=== PATIENT | male | born 1945 | race Caucasian/White ===

== ENCOUNTER 2016-10-08 09:52 | Inpatient (IN) | payer OTHER ==
[2016-10-08] MEDS ORDERED: ONDANSETRON 4 MG/2 ML VIAL IVP ONE (11:01)
--- NOTE | 2016-10-08 11:04 | EDPHY ---
H & P Stated Complaint: chronic back pain/? fall saturday may have reinjured Source: Patient, Family Exam Limitations: No limitations - Personal History Current Tetanus/Diphtheria Vaccine: Yes Tetanus Vaccine Date: 2011 - Medical/Surgical History Hx Asthma: Yes Hx Chronic Respiratory Disease: Yes Hx Diabetes: Yes Hx Cardiac Disease: Yes Hx Renal Disease: No Hx Cirrhosis: No Hx Alcoholism: No Hx HIV/AIDS: No Hx Splenectomy or Spleen Trauma: No Other PMH: nose/vasectomy/ COPD/toe infection/chronic back probl/back surgery - Social History Smoking Status: Former smoker HPI/ROS: CHIEF COMPLAINT: Back pain HISTORY OF PRESENT ILLNESS: fell on Saturday evening injuring his low back. At that time he had minimal pain. He had no head injury or loss of consciousness. Describes no motor or sensory changes. However on Saturday he noticed increasing pain. Since that time his pain is increased from mild to moderate. It is worse with any palpation of lumbar region. It radiates down the right leg. Some paresthesia of the right leg. Worse with palpation or movement. Improved with rest. No incontinence of bowel or bladder. No retention of bowel or bladder. No anesthesia of the leg or motor changes. Does have a history of low back pain status post discopathy with uncertain surgeries in the past. He knows he has no hardware in there. No injuries elsewhere. He also has an ongoing foot infection that he has no complaints for but is asking to have his scheduled antibiotics administered through his existing PICC line. He has no complaints regarding the foot. No other associated complaints or modifying factors. REVIEW OF SYSTEMS: Ten systems reviewed and are negative unless otherwise noted in the HPI EXAMINATION General Appearance: Alert, no distress Head: normocephalic, atraumatic Eyes: Pupils equal and round, no conjunctival pallor or injection ENT, Mouth: Mucous membranes moist . Uvula midline. No lesions. Neck: Normal inspection, supple, non-tender Respiratory: mild rhonchi. No wheezing, crackles or consolidation. No distress or diminishment Cardiovascular: Regular rate and rhythm. Pulses intact distally with symmetric PT and radial pulses. Left DP not evaluated due to bandage Gastrointestinal: Abdomen is soft and nontender. Mild, reducible umbilical hernia. Nontender in all quadrants. Nonacute Back: moderate tenderness of the lumbar spine. No crepitus, step-off or deformity. Range of motion not fully tested secondary to pain Neurological: A&O, paresthesia of the right lower extremity. Strength is 5/5 in the right ankle, knee and hip. No focal deficits. Skin: Skin changes of bilateral lower extremities consistent with venous stasis. There is a wound on the left foot that I did not examine due to clean bandage. He has no complaints regarding this. Extremities: Nontender, Symmetric 1+ pedal edema Psychiatric: Mood and affect normal DIFFERENTIAL DIAGNOSES: Including but not limited to MDM: 11:00 a.m. fall with lower back pain, right-sided radiculopathy and mild hyper paresthesia. He has no weakness of the right lower extremity. No incontinence of bowel or bladder. No retention of bowel or bladder. No paralysis. Given his age, chronicity of back pain, in the presence of an fall with symptoms as above, have gone straight to MRI of the low back. Patient's bowels are comfortable with this plan. Additionally he has ongoing infection of the foot, the PICC line in place. I have given any verbal for him to receive his scheduled medications. We will give him pain medication to get the MRI. he is also comfortable with this plan. 12:52 p.m. notified by Radiology that there are significant findings on the MRI as listed in his report. The most acute L5 fracture with severe stenosis of the canal due to retropulsion. There are changes at L1, L3 as for as well as noted. We did review these. I did immediately paged Neurosurgery at 12:56 p.m.. We are waiting their call this time. 1:23 p.m. spoke with LESLI Osorio, with Neurosurgery. She was made aware of the significant findings on the MRI of the lumbar spine. She informed that she will have someone come see the patient here in the emergency department. 1:[address] Helm at bedside examining the patient at this time. 2:20 p.m. notified by Neurosurgery that they will admit the patient due to these findings. They are requesting medicine consult as the plan for surgery on Saturday. I discussed the case with the hospitalist, and Dr. Campbell will provide consultation. He is admitted in stable condition SUPERVISION: This patient was independently evaluated without the aide of supervising physician. (John Ring) Constitutional: Initial Vital Signs Temperature (C) 36.4 C 10/08/16 09:57 Heart Rate 86 10/08/16 09:57 Respiratory Rate 22 H 10/08/16 09:57 Blood Pressure 151/78 H 10/08/16 09:57 O2 Sat (%) 90 L 10/08/16 09:57 O2 Delivery Mode Nasal Cannula Allergies/Adverse Reactions: No Known Allergies Allergy (Verified 10/08/16 09:56) Home Medications: Medication Instructions Recorded Prednisone 10 mg PO DAILY 04/12/11 SIMVASTATIN [Zocor] 40 mg PO HS 04/12/11 Zafirlukast [Accolate 20 MG] 20 mg PO BID@1000,199904/12/11 metFORMIN HCL [Glucophage 500 mg 1,000 mg PO BID 04/12/11 (*)] Aspirin [Aspirin 81mg (*)] 81 mg PO HS 04/09/15 Cholecalciferol (Vitamin D3) 4,000 unit PO HS 04/09/15 [Vitamin D3] Fluticasone/Salmeter 500/50Mcg 1 puffs IH BID 04/09/15 [Advair 500/50 (*)] Albuterol [Proventil Inhaler HFA 1 - 2 puffs IH DAILY PRN 08/31/16 (*)] Allopurinol [Allopurinol 100 MG 100 mg PO DAILY 08/31/16 (*)] Ferrous Sulfate [Ferrous Sulf 325 325 mg PO DAILY 08/31/16 MG (*)] Furosemide [Lasix 40 MG (*)] 40 mg PO DAILY 08/31/16 Ipratropium/Albuterol [Duoneb (*)] 3 ml IH QID 08/31/16 Losartan Potassium [Cozaar 50 mg 50 mg PO HS 08/31/16 (*)] Pantoprazole Sodium [Protonix 40mg 40 mg PO DAILY 08/31/16 (*)] Potassium Cl [Klor-Con 20 meq (*)] 20 meq PO DAILY 08/31/16 guaiFENesin [Mucinex 600 MG (*)] 1,200 mg PO DAILY PRN 08/31/16 Acetaminophen [Tylenol 325mg (*)] 650 mg PO Q4HRS PRN #0 tab 09/02/16 Ertapenem [INVanz] 1 gm IV DAILY #0 vial 09/02/16 Hydrocodone/APAP 5/325 [[place] 1 tab PO Q4HRS PRN #20 tab 09/02/16 5/325 (*)] Vancomycin [Vancomycin (*)] 1.25 gm IV Q24H #0 vial 09/02/16 Medical Decision Making Other Provider: The patient was evaluated and managed by the Physician Coat Examiner/ Nurse Practitioner. I discussed the patient's presentation and course with the midlevel provider with them and agree with the evaluation. My co-signature indicates that I have reviewed this chart and I agree with the findings and plan of care as documented. I am the secondary supervising physician. (Kirsty Smith) - Data Points Medications Given: Discontinued Medications Morphine Sulfate (Morphine) 4 mg IVP EDNOW ONE Stop: 10/08/16 11:02 Last Admin: 10/08/16 11:34 Dose: 4 mg Ondansetron HCl (Zofran) 4 mg IVP EDNOW ONE Stop: 10/08/16 11:02 Last Admin: 10/08/16 11:35 Dose: 4 mg Departure - Departure Disposition: [facility] Inpatient Acute Clinical Impression: Closed compression fracture of L1 lumbar vertebral body, Compression fracture of L3 lumbar vertebra, Compression fracture of L4 lumbar vertebra Condition: Good
--- NOTE | 2016-10-08 13:18 | MR ---
MRI of the Lumbar Spine (Without Contrast) Clinical Indications: Evaluate multiple lumbar compression fractures. Radiculopathy post trauma. Technique: Sagittal and axial T1 and T2 MR sequences of the lumbar spine without contrast. Comparison examination: Lateral lumbar spine radiograph September 07, 2015. Findings: From prior examination, there is been significant interval change in appearance of the lum bar spine over one year. There has been interval development of severe compression fractures of L1 an d L4 with fractures through the centrum of both vertebral bodies. Retropulsion of bone at both levels contributes to moderate central stenosis at L1 and severe central stenosis at L4. A moderate tye marilin deformity of the superior endplate of L3 is also new from the prior examination, but subacute in age. There is an acute mild compression deformity of the superior endplate of L4. Moderate compressi on deformity of the T11 vertebral body appears remote in age. L1-L2: No disk herniation. Retropulsion of bone from L1 compression deformity contributes to moderate acquired central canal stenosis. L2-L3: No disk herniation or stenosis. L3-L4: Broad-based annular bulging. Retropulsion of bone from the severe L4 compression deformity cre ates severe acquired central canal stenosis. There is marked crowding of the cauda equina within the thecal space.. L4-L5: No disk herniation or stenosis. L5-S1: No disk herniation or stenosis. Impression: Significant interval progression and osteoporotic compression fractures from one year ea rlier. There has been interval development of severe compression deformity of L4 with associated edinson re acquired central canal stenosis. Severe compression fracture of L1 is associated with moderate acq uired central canal stenosis. Acute superior endplate fracture of L5 is present without retropulsion. Moderate remote compression fracture of the superior endplate of L3 and T11.. Results called to John Ring PA-C, at the time of the interpretation..
[2016-10-08] MEDS ORDERED: DIAZEPAM 10 MG/2 ML SYR IVP PRN (14:12)
[2016-10-08] MEDS ORDERED: POLYETHYLENE GLYCOL 3350 17 GM PKT PO PRN (14:12)
[2016-10-08] MEDS ORDERED: ONDANSETRON DISINTEGRATING 4 MG TAB PO PRN (14:12)
[2016-10-08] MEDS ORDERED: DIAZEPAM 5 MG TAB PO PRN (14:12)
[2016-10-08] MEDS ORDERED: LACTULOSE 20 GM/30 ML UDCUP PO PRN (14:12)
[2016-10-08] MEDS ORDERED: ONDANSETRON 4 MG/2 ML VIAL IVP PRN (14:12)
[2016-10-08] MEDS ORDERED: MAGNESIUM HYDROXIDE 30 ML UDCUP PO PRN (14:12)
[2016-10-08] MEDS ORDERED: diphenhydrAMINE 25 MG CAP PO PRN (14:12)
[2016-10-08] MEDS ORDERED: BISACODYL 10 MG SUPP PR PRN (14:12)
[2016-10-08] MEDS ORDERED: ACETAMINOPHEN 325 MG TAB PO PRN (14:12)
--- NOTE | 2016-10-08 17:21 | GHP ---
[f rep st] HISTORY AND PHYSICAL DATE OF ADMISSION: 10/08/2016 REASON FOR EVALUATION: Worsening low back pain with right lower extremity weakness and pain status post fall. HISTORY OF PRESENT ILLNESS: The patient is well known to me from prior lumbar surgery. He comes today because he states that on the evening of the 05 October 2016 he fell onto his back. He had minimal back pain at that time, but ongoing chronic low back pain as he has had for several months. No associated head injury or loss of consciousness, and no loss of bowel or bladder function or weakness or numbness and tingling of the lower extremities. He noticed increasing pain on the subsequent day that went from mild to moderate. He had extremely worse pain with palpation of the lumbar spine. The pain is radiating down the entire right leg in a nondermatomal distribution. Pain is worse with movement and palpation and improves with rest. No associated left lower extremity symptoms. He has never had symptoms like this in the past. He has been doing quite well and recently has been treated for a foot infection for which he has been getting treatment through his PICC line. REVIEW OF SYSTEMS: A 10-point review of systems on the patient intake form reviewed by myself, significant only for those noted above in the HPI. ALLERGIES: No known drug allergies. MEDICATIONS: 1. Prednisone 10 mg p.o. daily. 2. Zocor 40 mg p.o. q.h.s. 3. Zafirlukast 20 mg p.o. b.i.d. 4. Metformin 1000 mg p.o. b.i.d. 5. Aspirin 81 mg p.o. q.h.s. 6. Vitamin D 4000 units p.o. q.h.s. 7. Advair 500/50 one puff inhaled b.i.d. 8. Albuterol 1-2 puffs daily p.r.n. 9. Allopurinol 100 mg p.o. daily. 10. Ferrous sulfate 325 mg p.o. daily. 11. Lasix 40 mg p.o. daily. 12. Albuterol 3 mL inhaled q.i.d. 13. Cozaar 50 mg p.o. q.h.s. 14. Pantoprazole 40 mg p.o. daily. 15. Potassium chloride 20 mEq p.o. daily. 16. Guaifenesin 1200 mg p.o. daily p.r.n. 17. Tylenol 325 mg p.o. daily. 18. Invanz 1 g IV daily. 19. [place] 5/325 p.o. daily. 20. Vancomycin 1.25 g IV q.24 hours. FAMILY HISTORY: Negative for any cranial aneurysms or brain tumors. PAST MEDICAL HISTORY: Significant for asthma, chronic respiratory disease, diabetes, cardiac disease. PAST SURGICAL HISTORY: 1. History of prior decompression in the lumbar spine. 2. History of toe infection with recent surgery. 3. Vasectomy. SOCIAL HISTORY: The patient is and accompanied by his in the room today. Denies any tobacco use. PHYSICAL EXAMINATION: VITAL SIGNS: Temperature 97.5, heart rate 86, respiratory rate 22, blood pressure 151/78, satting at 90% and currently on 2 L nasal cannula oxygen. GENERAL: The patient is laying in bed in no acute distress. He is quite pleasant and cooperative with the examination. is at bedside. Mood and affect are appropriate. HEENT: Head is atraumatic, normocephalic. Pupils are equal, round, reactive to light bilaterally. Oropharynx is moist. CARDIOVASCULAR/PULMONARY: Deferred. NEUROLOGIC: Motor exam: He has 5/5 strength with bilateral supervisor hot strip mill strength, biceps, triceps, bilateral hip flexion, knee flexion, extension, and right-sided plantar dorsiflexion. Left ankle is not tested secondary to it being in a bandage from his prior surgery. Sensory exam is intact with sensation to light touch throughout all major dermatomes of bilateral upper and lower extremities throughout, with diminished sensation slightly in the bilateral stocking distribution. SKIN: He has a wound on the left which is currently covered by a bandage which was not removed. Other, he has no Pillai's. No Babinski. Other, gait and station are deferred. Neurologic cranial nerves 2-12 are otherwise intact. Face symmetric. Tongue protrudes in midline. Uvula and palate elevate symmetrically. Symmetric sensation on the face to light touch. Hearing is intact to light conversation. Shoulder shrug is symmetric. MEDICAL DECISION MAKING: Patient underwent an MRI scan of the lumbar spine without contrast completed on the September, reviewed by myself on the [facility] PACS system. There is significant interprogression osteoporotic compression deformity with severe compression deformity of L4 with associated severe acquired central canal stenosis. There is severe compression deformity of L1 with moderate acquired central canal stenosis. There is acute superior endplate fracture of L5 without retropulsion. There are remote compression deformities of the superior endplates of L3 and T11. ASSESSMENT AND PLAN: The patient is a 71-year-old gentleman with multiple medical comorbidities including utilization of prednisone for chronic obstructive pulmonary disease, who presents now with worsening low back pain with right lower extremity paresthesias and weakness. On clinical examination, he appears to have a normal clinical examination; though, he is having difficulty with ambulation secondary to both his back pain and right lower extremity pain. He has acute deformities of the L4 and superior endplate of L5 and questionable L1 endplates with severe acquired stenosis at the L4 level. At this point, the patient's pain is poorly controlled and he is not able to be ambulatory or be discharged home given his age and comorbidities as well as neurological findings. At this point, we will admit him to the hospital for likely surgical intervention. I discussed with him the risks, benefits, and treatment alternatives, including no intervention. Will have the medicine service consult on the patient and get him cleared for surgery. We have got him booked for surgery on the 11 of October for an L3-L5 lumbar laminectomy with kyphoplasty of both L4 and L5. We will hold his aspirin in the meantime and have the medical service ensure that he gets his antibiotics and gets him teed up from a medical standpoint for surgery. This was discussed with the patient's and patient in the ER today, and both are in agreement. /[id number]/MODL MTDD
--- NOTE | 2016-10-08 18:10 | DX ---
Portable Chest 17:08 History: Evaluate pneumonia for pleural effusion Comparison: March 07, 2016 Findings: There is new patchy right lung infiltrate. Bibasilar consolidation is chronic or recurrent and associated with increased blunting of the right costophrenic gutter that likely represents a smal l pleural effusion. A right arm PICC line is newly present with tip in the superior vena cava. Prior left mid lung consolidation has cleared. Impression: New right lung pneumonia with small right pleural effusion. Basilar consolidation consist ent with chronic scarring/atelectasis versus recurrent pneumonia.
[2016-10-08] MEDS ORDERED: D50W 25 GM/50 ML SYR IVP PRN (18:22)
[2016-10-08] MEDS ORDERED: guaiFENesin 600 MG TAB.ER PO PRN (18:23)
[2016-10-08] MEDS ORDERED: VANCOMYCIN 1.25 GM IV SCH (18:30)
[2016-10-08 20:02] LABS: HEMATOCRIT 27.4 % (40.0-51.0); MEAN CELL HEMOGLOBIN 31.4 pg (27.9-34.1); MEAN CELL HEMOGLOBIN CONCENTR. 32.8 g/dL (32.4-36.7); MEAN CELL VOLUME 95.5 fL (81.5-99.8); RED BLOOD CELL COUNT 2.87 10^6/uL (4.40-6.38)
--- NOTE | 2016-10-08 20:06 | GCON ---
[f rep st] CONSULTATION DATE OF CONSULTATION: 10/08/2016 REFERRING PHYSICIAN: Albert Helm MD REASON FOR CONSULTATION: Management of medical issues. HISTORY OF PRESENT ILLNESS: Patient is a 71-year-old male with history of prior lumbar spine decompr ession, prediabetes, COPD on chronic oxygen 4 L, presenting with increased back pain. States he fell out of a chair reaching for something on the floor on the evening of the and fell on his right side. He did not hit his head or have loss of consciousness. He denies overt weakness. No bowel or bladder incontinence. He had increased pain on the right side the subsequent day that was more mode rate. When asked to describe the pain, he could not tell me. This pain does radiate down the right leg and worse with movements. Minimal pain if he is lying still. He has been recently followed by Dr. Jamison with Infectious Disease for a diabetic foot ulcer, in [facility] he has had a PICC line and been receiving Invanz. Patient denies fevers, chills, or sweats. No c ough. No shortness of breath. No myalgias. No ill contacts. REVIEW OF SYSTEMS: I completed a 10-point review of systems, negative except noted in HPI. PAST MEDICAL HISTORY: 1. Left foot cellulitis, currently treated with Invanz. 2. COPD. 3. Chronic hypoxemic respiratory failure with 4 L all the time. 4. Prediabetes. 5. History of atrial fibrillation. 6. History of gout. PAST SURGICAL HISTORY: Decompression lumbar spine, nasoseptal surgery, soft palate surgery, 2 prior lumbar surgeries, vasectomy. SOCIAL HISTORY: Lives in [place] with his . He has 2 kids. He has smoked 2 packs a day for 40 years, has 2 alcoholic drinks every evening, and no illicits. FAMILY HISTORY: Brother with diabetes. ALLERGIES: No known drug allergies. MEDICATIONS ON ADMISSION: Metformin 1000 mg b.i.d., guaifenesin p.r.n., Accolate 20 mg p.o. b.i.d., vancomycin 1.25 g IV q.24, simvastatin 40 mg daily, prednisone 10 mg daily, potassium 20 mEq daily, P rotonix 40 mg daily, losartan 50 mg p.o. q.h.s., DuoNeb q.i.d., [place] 5/325 one tab p.o. q.4 hours p. r.n., Lasix 40 mg daily, Advair 1 puff b.i.d., iron 325 mg daily, ertapenem 1 g daily. aspirin 81 mg daily, allopurinol 100 mg daily, albuterol p.r.n., Tylenol p.r.n. PHYSICAL EXAMINATION: VITAL SIGNS: Temperature 36.6, blood pressure 143/79, heart rate 83, respirat ions 16, and 96% on 2 L. GENERAL: Patient is sitting up in bed, in no acute distress. HEENT: PERRL A, EOMI. Oropharynx is clear without exudate or ulceration. CV: Regular rate rhythm. No murmurs, gallops, or rubs. LUNGS: Diminished throughout. No crackles or wheezes. ABDOMEN: Soft, nontender , nondistended. Positive bowel sounds. : No suprapubic or CVA tenderness. No Pena in place. M USCULOSKELETAL: Right upper extremity PICC line without evidence of infection or erythema. Left low er extremity with erythema up to the murdock with warmth, not tender. Two ulcers, 1 on the medial aspec t of the big toe was packed, heel ulcer is healing well with no purulence. IMAGING: Chest x-ray, personally reviewed by me: Small right-sided pleural effusion, query right-si ded opacity, basilar consolidation consistent with chronic scarring. Lumbar spine MRI: Significant interval progression in osteoporotic compression fractures from 1 year earlier. There has been inter waqar development of severe compression deformity of L4 with associated severe acquired central canal s tenosis. Severe compression fracture of L1 is associated with moderate acquired central canal stenos is. Acute superior endplate fracture of L5. Moderate remote compression fracture in the superior en dplate of L3 and T11. ASSESSMENT AND PLAN: 1. Acute on chronic lumbar pain: Patient presented with progressive pain with right lower extremity paresthesia and weakness. He has acute deformities of L4 and superior endplate of L5. Neurosurgery plans for L3 through L5 lumbar laminectomy on October 11, as well as kyphoplasty at L4-L5. Pain m anagement per Neurosurgery. Will hold his aspirin. 2. History of atrial fibrillation: Patient is currently in normal sinus rhythm upon my exam. EKG i s pending. He is anticoagulated with a baby aspirin. This has been held with upcoming surgery. 3. Accelerated hypertension: Will resume losartan and Lasix, but would recommend holding these day of surgery to avoid perioperative hypotension. 4. Hyperlipidemia: Continue Zocor. 5. Left diabetic foot ulcer: Patient is followed by Isaak Jamison with Infectious Disease. He has be en receiving vancomycin and meropenem as an outpatient. Will continue these medications. 6. Gout: Continue allopurinol. Labs are pending. BMP and CBC are pending. 7. Controlled diabetes: Patient on metformin as an outpatient. Will hold this with upcoming proced ure and use sliding scale insulin. 8. Chronic obstructive pulmonary disease: No evidence of exacerbation. Will continue home medicati ons. Continue inhalers, as well as his prednisone. 9. Chronic hypoxemic respiratory failure: Patient normally wears 4 L of oxygen in which now he has only requiring 2. Chest x-ray showed a small pleural effusion and possible pneumonia however, patien t is asymptomatic without fever. Labs are pending. Do not think this is infectious at this point. 10. Diet: Diabetic. 11. Deep venous thrombosis prophylaxis: SCDs. Thank you for this consult. We will follow along. Please call with any questions. /[id number]/MODL
[2016-10-08 20:28] LABS: ANION GAP 10 mEq/L (8-16); CALCIUM 8.9 mg/dL (8.5-10.4); CARBON DIOXIDE 27 mEq/l (22-31); CHLORIDE 101 mEq/L (97-110); CREATININE 0.9 mg/dL (0.7-1.3); GLOMERULAR FILTRATION RATE > 60; GLUCOSE 114 mg/dL (70-100); POTASSIUM 4.2 mEq/L (3.5-5.2); SODIUM 138 mEq/L (134-144)
[2016-10-08] MEDS ORDERED: FAMOTIDINE 20 MG/NACL 50 ML IV SCH (21:00)
[2016-10-08] MEDS: ERTAPENEM 1 GM in NS 100 ML IV SCH (21:55)
[2016-10-08] MEDS ORDERED: VANCOMYCIN 1.25 GM in D5W 250 ML IV SCH (22:00)
[2016-10-08] MEDS: CHOLECALCIFEROL VIT D3 2,000 UNITS TAB/CAP PO SCH (22:07)
[2016-10-08] MEDS: LOSARTAN POTASSIUM 50 MG TAB PO SCH (22:08)
[2016-10-08] MEDS: ATORVASTATIN CALCIUM 20 MG TAB PO SCH (22:08)
[2016-10-08] MEDS: IPRATROPIUM/ALBUTEROL 3 ML DEYVIAL IH SCH (22:13)
[2016-10-08] MEDS: FLUTICASONE/SALMETER 500/50MCG DISKUS IH SCH (22:17)
[2016-10-08] MEDS: SENNOSIDES/DOCUSATE SODIUM TAB PO SCH (22:42)
[2016-10-08] MEDS: ZAFIRLUKAST 20 MG PO SCH (22:43)
[2016-10-09 05:31] LABS: HEMATOCRIT 25.7 % (40.0-51.0); HEMOGLOBIN 8.6 g/dL (13.7-17.5); MEAN CELL HEMOGLOBIN 32.3 pg (27.9-34.1); MEAN CELL HEMOGLOBIN CONCENTR. 33.5 g/dL (32.4-36.7); MEAN CELL VOLUME 96.6 fL (81.5-99.8); RED BLOOD CELL COUNT 2.66 10^6/uL (4.40-6.38); RED CELL DISTRIBUTION WIDTH 14.6 % (11.5-15.2)
[2016-10-09 05:43] LABS: INR 1.13 (0.83-1.16); PROTIME(PATIENT) 14.4 SEC (12.0-15.0)
[2016-10-09 05:44] LABS: APTT 30.1 SEC (23.0-38.0)
[2016-10-09 05:47] LABS: ANION GAP 6 mEq/L (8-16); CALCIUM 8.9 mg/dL (8.5-10.4); CARBON DIOXIDE 29 mEq/l (22-31); CHLORIDE 103 mEq/L (97-110); CREATININE 0.9 mg/dL (0.7-1.3); GLOMERULAR FILTRATION RATE > 60; GLUCOSE 72 mg/dL (70-100); POTASSIUM 4.4 mEq/L (3.5-5.2); SODIUM 138 mEq/L (134-144)
[2016-10-09] MEDS: IPRATROPIUM/ALBUTEROL 3 ML DEYVIAL IH SCH ×4 (06:06→21:54)
--- NOTE | 2016-10-09 08:34 | HOSPPROG ---
Hospitalist Progress Note Assessment/Plan: #Lumbar back pain -controlled on current regimen -bowel regimen -plan for surgery #Prediabetes -hold metformin. SSI #Benign HTN -cont home meds -Hold ACEI and LAsix day of surgery #Gout -allopurinol #Diabetic foot infection -was accidentally dosed Envanz/Vanc 2 x yesterday. He received doses at home by his . Med rec reflected that he had last dose on Saturday. -Random level today 22. Hold tonight's dose. Trough in morning. Kidney function normal. Redose in morning -cont Envanz #Chronic hypoxemic resp failure -due to COPD. No e/e exacerbation -questionable PNA on CXR, but he does not endorse any symptoms, thus no abx #Atrial fibrillation -EKG with NSR, 1st degree block. No concerning arrhythmia. Restart ASA after surgery when ok by NSGY #Diet: DM #DVT ppx: SCDs #Disp: cont IV abx. Subjective: pain controlled currently. Denies fever, cough, SOB Objective: Vital Signs Temp Pulse Resp BP Pulse Ox 36.7 C 82 16 110/64 90 L 10/09/16 07:24 10/09/16 07:24 10/09/16 07:24 10/09/16 07:24 10/09/16 07:24 Laboratory Results 10/09/16 04:50 10/09/16 04:50 10/08/16 10/09/16 10/10/16 05:59 05:59 05:59 Intake Total 1200 Output Total 1050 Balance 150 PT 14.4 SEC (12.0-15.0) 10/09/16 04:50 INR 1.13 (0.83-1.16) 10/09/16 04:50 - Physical Exam Constitutional: no apparent distress Eyes: PERRL Ears, Nose, Mouth, Throat: moist mucous membranes, hearing normal Cardiovascular: regular rate and rhythym, no murmur, rub, or gallop Respiratory: no respiratory distress, reduced air movement Gastrointestinal: normoactive bowel sounds, soft, non-tender abdomen Skin: warm Musculoskeletal: other (left foot ulcers wrapped. Mild erythema over murdock) Neurologic: AAOx3 ICD10 Worksheet Patient Problems: Problems Problem Status Diagnosed Closed compression fracture of L1 lumbar vertebral body Acute Compression fracture of L3 lumbar vertebra Acute Compression fracture of L4 lumbar vertebra Acute Cellulitis of left foot Acute MRSA (methicillin resistant Staphylococcus aureus) Acute 09/14/16
[2016-10-09] MEDS: ALLOPURINOL 100 MG TAB PO SCH (08:53)
[2016-10-09] MEDS: FERROUS SULFATE 325 MG TAB PO SCH (08:53)
[2016-10-09] MEDS: PANTOPRAZOLE SODIUM 40 MG TAB PO SCH (08:54)
[2016-10-09] MEDS: predniSONE 10 MG TAB PO SCH (08:54)
[2016-10-09] MEDS: FAMOTIDINE 20 MG TAB PO SCH ×2 (08:54→19:40)
[2016-10-09] MEDS: INSULIN LISPRO 100 UNIT/ML SC SCH ×3 (08:55→16:19)
[2016-10-09] MEDS: FUROSEMIDE 40 MG TAB PO SCH (08:56)
[2016-10-09] MEDS: ZAFIRLUKAST 20 MG PO SCH (08:56)
[2016-10-09] MEDS: FLUTICASONE/SALMETER 500/50MCG DISKUS IH SCH ×2 (08:56→21:55)
[2016-10-09] MEDS: SENNOSIDES/DOCUSATE SODIUM TAB PO SCH ×2 (08:56→22:42)
[2016-10-09] MEDS ORDERED: ERTAPENEM 1 GM VIAL IV SCH (09:00)
--- NOTE | 2016-10-09 09:32 | CPEKG ---
Heart Rate: 69 RR Interval: 870 P-R Interval: 248 QRSD Interval: 90 QT Interval: 416 QTC Interval: 446 P [place]: 3 QRS [place]: 14 T Wave [place]: 46 EKG Severity - ABNORMAL ECG - EKG Impression: SINUS RHYTHM EKG Impression: FIRST DEGREE AV BLOCK EKG Impression: LOW VOLTAGE THROUGHOUT Electronically Signed By: Ghanshyam Mcmahon 10-Oct-2016 08:06:16
--- NOTE | 2016-10-09 09:57 | NEUSURGPN ---
Assessment/Plan: 71 y/o male with lumbar stenosis and lumbar compression fractures (L4 and L5) -Discussed the risks, benefits and alternatives to an L3-L5 laminectomy with L4 and L5 kyphoplasty. Consents signs and placed on chart. Questions answered. - Appreciate medicine clearance for surgery for -Optimize pain management -Discussed with Dr. Helm -Please notify NS with any change in neuro/motor exam Subjective: low back pain Objective: NAD A&Ox3 MAEx4 5/ and equal in BUE and BLE. - Physician Discussed Patient with : Volodym[facility] Neurosurgery Physical Exam - Vitals, I&O, Labs I and O 10/08/16 10/09/16 10/10/16 05:59 05:59 05:59 Intake Total 1200 Output Total 1050 Balance 150 Weight 77.111 kg Intake: Oral (ml) 800 IV Infused (ml) 400 Famotidine 20 mg/NaCl 50 50 ml @ 200 mls/hr IV Q12HRS [facility] Rx#:[id number] Ertapenem 1 gm In Ns 100 100 ml @ 200 mls/hr IV DAILY21 [facility] Rx#: [id number] Vancomycin 1.25 gm In D5w 250 250 ml @ 166.667 mls/hr IV Q24H [facility] Rx#: [id number] Output: Urine (ml) 1050 Urinal 450 Other: Number of Stools Incontinence 1 Vital Signs Temp Pulse Resp BP Pulse Ox 36.7 C 82 16 110/64 90 L 10/09/16 07:24 10/09/16 07:24 10/09/16 07:24 10/09/16 07:24 10/09/16 07:24 Laboratory Results 10/09/16 04:50 10/09/16 04:50 ICD10 Worksheet Patient Problems: Problems Problem Status Diagnosed Closed compression fracture of L1 lumbar vertebral body Acute Compression fracture of L3 lumbar vertebra Acute Compression fracture of L4 lumbar vertebra Acute Cellulitis of left foot Acute MRSA (methicillin resistant Staphylococcus aureus) Acute 09/14/16
[2016-10-09] MEDS: OXYCODONE/APAP 5/325 TAB PO PRN (11:32)
[2016-10-09] MEDS: MONTELUKAST SODIUM 10 MG TAB PO SCH (17:37)
[2016-10-09] MEDS: LOSARTAN POTASSIUM 50 MG TAB PO SCH (19:40)
[2016-10-09] MEDS: CHOLECALCIFEROL VIT D3 2,000 UNITS TAB/CAP PO SCH (19:40)
[2016-10-09] MEDS: ATORVASTATIN CALCIUM 20 MG TAB PO SCH (19:40)
[2016-10-09] MEDS: ERTAPENEM 1 GM in NS 100 ML IV SCH (22:16)
[2016-10-10 05:11] LABS: HEMATOCRIT 26.3 % (40.0-51.0); HEMOGLOBIN 8.7 g/dL (13.7-17.5); MEAN CELL HEMOGLOBIN 31.8 pg (27.9-34.1); MEAN CELL HEMOGLOBIN CONCENTR. 33.1 g/dL (32.4-36.7); RED BLOOD CELL COUNT 2.74 10^6/uL (4.40-6.38); RED CELL DISTRIBUTION WIDTH 14.8 % (11.5-15.2)
[2016-10-10 05:16] LABS: ANION GAP 5 mEq/L (8-16); CALCIUM 8.8 mg/dL (8.5-10.4); CARBON DIOXIDE 27 mEq/l (22-31); CHLORIDE 105 mEq/L (97-110); CREATININE 0.9 mg/dL (0.7-1.3); GLOMERULAR FILTRATION RATE > 60; GLUCOSE 84 mg/dL (70-100); POTASSIUM 4.5 mEq/L (3.5-5.2); SODIUM 137 mEq/L (134-144)
[2016-10-10] MEDS: IPRATROPIUM/ALBUTEROL 3 ML DEYVIAL IH SCH ×4 (06:24→21:22)
[2016-10-10] MEDS: INSULIN LISPRO 100 UNIT/ML SC SCH ×3 (08:30→18:27)
[2016-10-10] MEDS ORDERED: VANCOMYCIN 1 GM in NS 250 ML IV SCH (09:00)
[2016-10-10] MEDS: ALLOPURINOL 100 MG TAB PO SCH (09:13)
[2016-10-10] MEDS: HYDROCODONE/APAP 5/325 TAB PO PRN (09:13)
[2016-10-10] MEDS: predniSONE 10 MG TAB PO SCH (09:13)
[2016-10-10] MEDS: SENNOSIDES/DOCUSATE SODIUM TAB PO SCH ×2 (09:13→23:33)
[2016-10-10] MEDS: FERROUS SULFATE 325 MG TAB PO SCH (09:13)
[2016-10-10] MEDS: PANTOPRAZOLE SODIUM 40 MG TAB PO SCH (09:14)
[2016-10-10] MEDS: FAMOTIDINE 20 MG TAB PO SCH ×2 (09:14→20:31)
--- NOTE | 2016-10-10 09:29 | NEUSURGPN ---
Assessment/Plan: 71 y/o male with lumbar stenosis at L1 and L4 and lumbar compression fractures ( L4 and L5). Right leg pain. -Scheduled on for L3-L5 laminectomy with L4 and L5 kyphoplasty. Consents signed for L3-5 laminectomy and L4 and L5 kyphoplasty. - Appreciate medicine clearance for surgery for -Optimize pain management -Please notify NS with any change in neuro/motor exam Subjective: low back pain Objective: NAD A&Ox3 MAEx4 5/5 and equal in BUE and BLE.Subjective weakness in right leg. Sens +LT in bilat LE Left foot wrapped in gauze Urinary Catheter in Place: No Neurosurgery Physical Exam - Vitals, I&O, Labs I and O 10/09/16 10/10/16 10/11/16 05:59 05:59 05:59 Intake Total 1200 1275 500 Output Total 1050 1400 Balance 150 -125 500 Weight 77.111 kg Intake: Oral (ml) 800 1175 500 IV Infused (ml) 400 100 Famotidine 20 mg/NaCl 50 50 ml @ 200 mls/hr IV Q12HRS [facility] Rx#:[id number] Ertapenem 1 gm In Ns 100 100 100 ml @ 200 mls/hr IV DAILY21 [facility] Rx#: [id number] Vancomycin 1.25 gm In D5w 250 250 ml @ 166.667 mls/hr IV Q24H [facility] Rx#: [id number] Output: Urine (ml) 1050 1400 Incontinence 300 Urinal 450 1100 Other: Number of Voids Incontinence 1 Urinal 1 Number of Stools Incontinence 1 1 Urinal 1 Vital Signs Temp Pulse Resp BP Pulse Ox 36.4 C 62 16 129/63 H 98 10/10/16 08:00 10/10/16 08:00 10/10/16 08:00 10/10/16 08:00 10/10/16 08:00 Laboratory Results 10/10/16 04:30 10/10/16 04:30 ICD10 Worksheet Patient Problems: Problems Problem Status Diagnosed Closed compression fracture of L1 lumbar vertebral body Acute Compression fracture of L3 lumbar vertebra Acute Compression fracture of L4 lumbar vertebra Acute Cellulitis of left foot Acute MRSA (methicillin resistant Staphylococcus aureus) Acute 09/14/16
[2016-10-10] MEDS: VANCOMYCIN HCL/NORMAL SALINE 250 ML IV SCH (10:02)
[2016-10-10] MEDS: FLUTICASONE/SALMETER 500/50MCG DISKUS IH SCH ×2 (10:07→21:23)
[2016-10-10] MEDS: FUROSEMIDE 40 MG TAB PO SCH (12:58)
--- NOTE | 2016-10-10 14:56 | WOCRNPDOC ---
[facility] Advanced Assessment Note - Skin Integrity Problem, Advanced Assess Left First Metatarsal Head Surgical Wound/Incision Dressing Type: Gauze (packing and covering) Dressing Description: Intact, Shadowed Exudate Amount: Scant Exudate Color: Reddish/Yellow Exudate Characteristic(s): Serosanguinous Integumentary Issue Intervention: Dressing Changed Deanna Wound Tissue: Intact Deanna Wound Swelling: None Wound Bed Color: Red Wound Bed Constitution: Granulation Tissue Wound Edges: Well Defined Site Odor: None Site Measurement - Head-to-Toe Length X Width X Depth (cm): 2.1cmx1.6cmx0.8cm Skin Integrity Problem Comment: Surgical wound w/ gauze packing noted to 1st metatarsal head. Surgery was performed on 09/14 outpatient, and patient is currently hospitalized for an unrelated reason. Packing removed, wound has copious granulation tissue throughout. There is no erythema deanna-wound, and no associated swelling. Wound packed w/ Algidex Ag 1/4 inch gauze, and covered w/ Allevyn Life dressing. Report given to package winder Nancy. Left Heel Pressure Injury Dressing Type: Allevyn Life Dressing Description: Clean/Dry, Intact Exudate Amount: Scant Exudate Color: Reddish/Yellow Exudate Characteristic(s): Serosanguinous Integumentary Issue Intervention: Visualized Under Dressing Deanna Wound Tissue: Blanching, Intact Deanna Wound Swelling: Mild Wound Bed Color: Red Wound Bed Constitution: Smooth Tissue Wound Edges: Epithelizing Site Odor: None Site Measurement - Head-to-Toe Length X Width X Depth (cm): 1.6cmx0.3cmx0.1cm Pressure Injury Present on Admit: Yes (healing pressure injury; patient developed this in rehab facility.) Skin Integrity Problem Comment: Healing pressure injury noted on L heel, linear in appearance and epthihelializing throughout. No erythema or associated swelling deanna-wound. Per outpatient tx, will order application of Anne Promogran collagen to be applied while he is here. Report given to package winder Nancy.
--- NOTE | 2016-10-10 16:22 | HOSPPROG ---
Hospitalist Progress Note Assessment/Plan: #Lumbar back pain -controlled on current regimen -bowel regimen -plan for surgery tomorrow #Prediabetes -hold metformin. SSI #Benign HTN -cont home meds -pt declining his Lasix. Hold PURNIMA-I day of surgery #Gout -allopurinol #Diabetic foot infection -was accidentally dosed Envanz/Vanc 2 x 10/08. He received doses at home by his . -Trough today 14, so redose vanc and cont Invanz. Wound care following #Chronic hypoxemic resp failure -due to COPD. No e/e exacerbation -questionable PNA on CXR, but he does not endorse any symptoms, thus no abx #Atrial fibrillation -EKG with NSR, 1st degree block. No concerning arrhythmia. Restart ASA after surgery when ok by NSGY #Diet: DM, NPO for surgery #DVT ppx: SCDs #Disp: cont IV abx. Subjective: refused PT due to pain Objective: Vital Signs Temp Pulse Resp BP Pulse Ox 36.4 C 60 16 132/72 H 93 10/10/16 12:00 10/10/16 12:00 10/10/16 12:00 10/10/16 12:00 10/10/16 12:00 Laboratory Results 10/10/16 04:30 10/10/16 04:30 10/09/16 10/10/16 10/11/16 05:59 05:59 05:59 Intake Total 1200 1275 500 Output Total 1050 1400 Balance 150 -125 500 PT 14.4 SEC (12.0-15.0) 10/09/16 04:50 INR 1.13 (0.83-1.16) 10/09/16 04:50 - Physical Exam Constitutional: no apparent distress, other (sitting up in chair) Eyes: PERRL Ears, Nose, Mouth, Throat: moist mucous membranes Cardiovascular: regular rate and rhythym, no murmur, rub, or gallop Respiratory: no respiratory distress, no rales or rhonchi Gastrointestinal: normoactive bowel sounds, soft, non-tender abdomen Genitourinary: no bladder fullness Skin: warm Musculoskeletal: other (right-sided lumbar TTP, weakness in right leg) Neurologic: AAOx3 Psychiatric: interacting appropriately ICD10 Worksheet Patient Problems: Problems Problem Status Diagnosed Closed compression fracture of L1 lumbar vertebral body Acute Compression fracture of L3 lumbar vertebra Acute Compression fracture of L4 lumbar vertebra Acute Cellulitis of left foot Acute MRSA (methicillin resistant Staphylococcus aureus) Acute 09/14/16
[2016-10-10] MEDS: MONTELUKAST SODIUM 10 MG TAB PO SCH (20:30)
[2016-10-10] MEDS: ATORVASTATIN CALCIUM 20 MG TAB PO SCH (20:31)
[2016-10-10] MEDS: CHOLECALCIFEROL VIT D3 2,000 UNITS TAB/CAP PO SCH (20:31)
[2016-10-10] MEDS: LOSARTAN POTASSIUM 50 MG TAB PO SCH (20:31)
[2016-10-10] MEDS: ERTAPENEM 1 GM in NS 100 ML IV SCH (20:32)
[2016-10-10] MEDS: NS 1,000 ML IV SCH (22:04)
[2016-10-11] MEDS ORDERED: NS W/ 20 KCl/L 1,000 ML IV SCH (00:01)
[2016-10-11] MEDS: IPRATROPIUM/ALBUTEROL 3 ML DEYVIAL IH SCH ×4 (05:44→21:38)
[2016-10-11 06:12] LABS: ANION GAP 7 mEq/L (8-16); CALCIUM 8.6 mg/dL (8.5-10.4); CARBON DIOXIDE 26 mEq/l (22-31); CHLORIDE 107 mEq/L (97-110); CREATININE 0.9 mg/dL (0.7-1.3); GLOMERULAR FILTRATION RATE > 60; GLUCOSE 86 mg/dL (70-100); POTASSIUM 4.4 mEq/L (3.5-5.2); SODIUM 140 mEq/L (134-144)
[2016-10-11] MEDS: NS 1,000 ML IV SCH ×2 (08:42→20:19)
[2016-10-11] MEDS: VANCOMYCIN HCL/NORMAL SALINE 250 ML IV SCH ×2 (08:42→08:44)
[2016-10-11] MEDS: ALLOPURINOL 100 MG TAB PO SCH (08:44)
[2016-10-11] MEDS: FERROUS SULFATE 325 MG TAB PO SCH (08:45)
[2016-10-11] MEDS: FAMOTIDINE 20 MG TAB PO SCH ×2 (08:48→20:18)
[2016-10-11] MEDS: PANTOPRAZOLE SODIUM 40 MG TAB PO SCH (08:49)
[2016-10-11] MEDS: SENNOSIDES/DOCUSATE SODIUM TAB PO SCH ×2 (08:49→21:58)
[2016-10-11] MEDS: INSULIN LISPRO 100 UNIT/ML SC SCH ×3 (08:49→20:30)
[2016-10-11] MEDS: FUROSEMIDE 40 MG TAB PO SCH (08:49)
[2016-10-11] MEDS: predniSONE 10 MG TAB PO SCH (08:49)
--- NOTE | 2016-10-11 09:09 | NEUSURGPN ---
Assessment/Plan: 71 y/o male with lumbar stenosis at L1 and L4 and lumbar compression fractures ( L4 and L5). Right leg pain. -Scheduled for L3-L5 laminectomy with L4 and L5 kyphoplasty today. -Consents signed in chartfor L3-5 laminectomy and L4 and L5 kyphoplasty. -NPO -Marked - Appreciate medicine clearance for surgery -Optimize pain management -Please notify NS with any change in neuro/motor exam D/w Dr Helm Subjective: Pt resting in bed, wishes to proceed with surgery. Objective: AAOx3 NAD VSS MAEx4 Motor 5/5 BLE L foot in padding/float +LT Urinary Catheter in Place: No - Physician Discussed Patient with : Volodymyr Neurosurgery Physical Exam - Vitals, I&O, Labs I and O 10/10/16 10/11/16 10/12/16 05:59 05:59 05:59 Intake Total 1275 2065 Output Total 1400 500 Balance -125 1565 Intake: Oral (ml) 1175 1150 IV Infused (ml) 100 915 Ertapenem 1 gm In Ns 100 100 100 ml @ 200 mls/hr IV DAILY21 [facility] Rx#: [id number] Vancomycin 1 gm In Ns 250 815 ml @ 250 mls/hr IV Q24H [facility] Rx#:[id number] Output: Urine (ml) 1400 500 Incontinence 300 Urinal 1100 500 Other: Number of Voids Incontinence 1 Urinal 1 3 Number of Stools Incontinence 1 Urinal 1 Vital Signs Temp Pulse Resp BP Pulse Ox 36.6 C 66 15 133/76 H 96 10/11/16 07:35 10/11/16 07:35 10/11/16 07:35 10/11/16 07:35 10/11/16 07:35 Laboratory Results 10/10/16 04:30 10/11/16 05:20 ICD10 Worksheet Patient Problems: Problems Problem Status Diagnosed Closed compression fracture of L1 lumbar vertebral body Acute Compression fracture of L3 lumbar vertebra Acute Compression fracture of L4 lumbar vertebra Acute Cellulitis of left foot Acute MRSA (methicillin resistant Staphylococcus aureus) Acute 09/14/16
[2016-10-11] MEDS: FLUTICASONE/SALMETER 500/50MCG DISKUS IH SCH ×2 (10:59→21:38)
[2016-10-11] MEDS ORDERED: ceFAZolin 2 GM/DEXTROSE 100 ML IV ONE (13:00)
[2016-10-11] MEDS ORDERED: ceFAZolin 2 GM in D5W 100 ML IV ONE (13:00)
--- NOTE | 2016-10-11 13:31 | HOSPPROG ---
Hospitalist Progress Note Assessment/Plan: Patient is a 71-year-old male presented to the emergency room with worsening low back pain with right lower extremity weakness. Today is my 1st encounter with the patient. Chart reviewed. Discussed his care with Dr. Jamison. #. Lumbar back pain after sustaining a fall * To get a L3-L4 laminectomy today #. chronic hypoxemic respiratory failure * at his baseline on 4 L * chest x-ray shows some concern for possible pneumonia. Patient is not febrile and does not have any signs or symptoms of pneumonia. #. anemia * hemoglobin hematocrit are lower than his baseline * will follow #. chronic COPD / no exacerbation * on chronic steroids / low-dose prednisone * was given 100 mg of hydrocortisone before induction of anesthesia * will give him 2 more doses every 8 hours and then he can resume his oral prednisone #. Prediabetes * hold metformin. SSI * had some hypoglycemia earlier today which required an amp of D50 #. gait instability * will have PT and OT see him after surgery #. left diabetic foot ulcer * on vancomycin and ertapenem * wound Care following / will have dressing changes every other day #. HTN * cont home meds * stable #. Gout * allopurinol #Atrial fibrillation/ history of this * during my evaluation he is in sinus rhythm * Restart ASA after surgery when ok by NSGY #Diet: DM, NPO for surgery #DVT ppx: SCDs/ will need Lovenox when okay with surgical team Subjective: patient is complaining of some back pain Objective: Vital Signs Temp Pulse Resp BP Pulse Ox 36.9 C 74 16 146/67 H 95 10/11/16 11:24 10/11/16 11:24 10/11/16 11:24 10/11/16 11:24 10/11/16 11:24 Laboratory Results 10/10/16 04:30 10/11/16 05:20 10/10/16 10/11/16 10/12/16 05:59 05:59 05:59 Intake Total 1275 2065 250 Output Total 1400 500 Balance -125 1565 250 PT 14.4 SEC (12.0-15.0) 10/09/16 04:50 INR 1.13 (0.83-1.16) 10/09/16 04:50 - Physical Exam Constitutional: chronically ill appearing, uncomfortable Eyes: PERRL Ears, Nose, Mouth, Throat: hard of hearing Cardiovascular: regular rate and rhythym Respiratory: no respiratory distress, reduced air movement ( very diminished bibasilar) Gastrointestinal: normoactive bowel sounds Skin: warm, other ( do not evaluated his lower extremities. He was leaving for surgery) Neurologic: AAOx3 Psychiatric: interacting appropriately, not anxious ICD10 Worksheet Patient Problems: Problems Problem Status Diagnosed Closed compression fracture of L1 lumbar vertebral body Acute Compression fracture of L3 lumbar vertebra Acute Compression fracture of L4 lumbar vertebra Acute Cellulitis of left foot Acute MRSA (methicillin resistant Staphylococcus aureus) Acute 09/14/16
[2016-10-11] MEDS ORDERED: ALBUTEROL 60 PUFFS/8 GM MDI IH PRN (13:59)
[2016-10-11] MEDS ORDERED: LIDOCAINE 2% 100 MG/5 ML SYR IVP ONE (14:04)
[2016-10-11] MEDS ORDERED: DEXAMETHASONE 4 MG/ML VIAL ONE (14:04)
[2016-10-11] MEDS ORDERED: ROCURONIUM 50 MG/5 ML VIAL ONE (14:04)
[2016-10-11] MEDS ORDERED: ONDANSETRON 4 MG/2 ML VIAL ONE (14:04)
[2016-10-11] MEDS ORDERED: fentaNYL 100 MCG/2 ML INJ ONE ×2 (14:05→18:52)
[2016-10-11] MEDS ORDERED: HYDROmorphONE/DILAUDID 2 MG/ML SYR ONE (14:05)
[2016-10-11] MEDS ORDERED: PROPOFOL/EMULSION 500 MG/50 ML BOTTLE IV ONE (14:05)
[2016-10-11] MEDS ORDERED: PROPOFOL 200 MG/20 ML VIAL ONE (14:05)
[2016-10-11] MEDS ORDERED: CEFAZOLIN 2 GM/DEXTROSE/100 ML BAG IV ONE (14:37)
[2016-10-11] MEDS ORDERED: BUPIVACAINE/EPI 0.25% 30 ML SDV ONE (14:41)
[2016-10-11] MEDS ORDERED: BACITRACIN 50,000 UNITS/10 ML SYR IRR ONE (14:41)
[2016-10-11] MEDS ORDERED: AVITENE POWDER 1 GM JAR TP ONE (14:42)
[2016-10-11] MEDS ORDERED: IOPAMIDOL (ISOVUE-M 300) 15 ML VIAL IV ONE (14:42)
[2016-10-11] MEDS ORDERED: SKIN ADHESIVE (DERMABOND) 1 EACH TP ONE ×2 (14:42→17:53)
[2016-10-11] MEDS ORDERED: MIDAZOLAM 2 MG/2 ML VIAL ONE (15:17)
[2016-10-11] MEDS ORDERED: HYDROCORTISONE 100 MG/2 ML VIAL ONE (15:58)
--- NOTE | 2016-10-11 17:19 | PCMIDPN ---
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 Patient is on both vancomycin and ertapenem. He is stable on these medications. Plan to continue these for 6 weeks total. Duration starts from date of prior surgery which was 09/14/2016. This makes an date 10/25/2016. In the meantime the patient had a fall at home and acute onset right lower extremity pain and weakness. Determination that he had multiple lumbar levels of compression fracture as well as acute severe spinal stenosis. He went for decompression today with Neurosurgery. No change in plans of coverage with antibiotics. Plan: 1. Continue both vancomycin and ertapenem. 2. Follow clinical course. 3. Wound dressing changes at least Q 48 hours. Subjective: Patient is awaiting transportation to surgery. No new complaints. No fevers or chills. No rash. Objective: Vancomycin # 1 Ertapenem # 2 Vital Signs Temp Pulse Resp BP Pulse Ox 36.9 C 74 16 146/67 H 95 10/11/16 11:24 10/11/16 11:24 10/11/16 11:24 10/11/16 11:24 10/11/16 11:24 Laboratory Results 10/10/16 04:30 10/11/16 05:20 10/10/16 10/11/16 10/12/16 05:59 05:59 05:59 Intake Total 1275 2065 250 Output Total 1400 500 Balance -125 1565 250 - Physical Exam General Appearance: WD/WN, alert, no apparent distress, non-toxic Respiratory: lungs clear, normal breath sounds, No respiratory distress Cardiac/Chest: regular rate, rhythm, No tachycardia Skin: normal color, warm/dry, No rash Neuro/Psych: alert, normal mood/affect, oriented x 3 ICD10 Worksheet Patient Problems: Problems Problem Status Diagnosed Closed compression fracture of L1 lumbar vertebral body Acute Compression fracture of L3 lumbar vertebra Acute Compression fracture of L4 lumbar vertebra Acute Cellulitis of left foot Acute MRSA (methicillin resistant Staphylococcus aureus) Acute 09/14/16
--- NOTE | 2016-10-11 18:03 | POSTOPPROG ---
Post Op Note Date of Operation: 10/11/16 Surgeon: Albert Helm Quality Control Expert: YAMIL Colón PAC Anesthesia: GET(General Endotracheal) Pre-op Diagnosis: compression fx, lumbar stenosis Post-op Diagnosis: compression fx, lumbar stenosis Indication: compression fx, lumbar stenosis Procedure: L3-L5 lmainectomy, L4 and L5 kyphoplasty Inf/Abcess present in the surg proc area at time of surgery?: No EBL: 80 Drains: Chacorta DELGADO Addendum - Addendum .: S: low back pain O: NAD A&Ox3 MAEx 4 Dressing c/d/i Plan: -Advance diet as tolerated -PTOT -Optimize pain management -DELONTE x1 -DVT prophx: TEDs, SCDs, Lovenox okay to restart tomorrow evening -Please notify SN with any change in neuro/motor exam
--- NOTE | 2016-10-11 20:04 | DX ---
Fluoroscopy, With Two Lumbar Images, at 1603 hours History: Lumbar laminectomy for back pain. Fluoroscopy time: 26.10 seconds utilized intraoperatively by Dr. Helm. Dose: 63.72 mGy. Technique: AP and lateral lumbar intraoperative images have just been presented for interpretation. Findings: Probe localized at the L4 vertebral body where there are compression fractures and prior k yphoplasty of L4 and L5. L3 moderate compression fracture also noted. Impression: Lumbar surgery, with 26.1 seconds of fluoroscopy.
[2016-10-11] MEDS: CHOLECALCIFEROL VIT D3 2,000 UNITS TAB/CAP PO SCH (20:18)
[2016-10-11] MEDS: ATORVASTATIN CALCIUM 20 MG TAB PO SCH (20:18)
[2016-10-11] MEDS: ERTAPENEM 1 GM in NS 100 ML IV SCH (20:19)
[2016-10-11] MEDS: HYDROCODONE/APAP 5/325 TAB PO PRN (20:19)
[2016-10-11] MEDS: HYDROCORTISONE 100 MG/2 ML VIAL IVP SCH (20:19)
--- NOTE | 2016-10-11 20:29 | GOP ---
[f rep st] OPERATIVE REPORT DATE OF OPERATION: 10/11/2016 SURGEON: Albert Helm MD MANAGER LVN: Jailyn Colón. ANESTHESIA: General. PREOPERATIVE DIAGNOSIS: 1. Pathologic compression fracture, L4 and L5. 2. Severe spinal stenosis, L3 through L5 with lower extremity claudication and lower extremity weakness. 3. Treatment refractory to nonoperative intervention. POSTOPERATIVE DIAGNOSIS: 1. Pathologic compression fracture, L4 and L5. 2. Severe spinal stenosis, L3 through L5 with lower extremity claudication and lower extremity weakness. 3. Treatment refractory to nonoperative intervention. PROCEDURE PERFORMED: 1. Right-sided extrapedicular L4 and L5 kyphoplasties from the [employer] Kyphon system with approximately 2.5 mm of cement into the L4 vertebral body and 5 mm of cement into the L5 vertebral body. 2. Decompressive laminectomy with bilateral medial facetectomies at L4-L5 and decompressive laminectomy with bilateral medial facetectomies and synovial cyst resection, L3-L4. 3. Use of intraoperative 3D Stealth navigation. 4. Use of intraoperative fluoroscopy, less 1 hour physician time. 5. Use of neuromonitoring. FINDINGS: per imaging SPECIMENS: None. ESTIMATED BLOOD LOSS: 80 mL. INDICATIONS: Mr. Mead is a 71-year-old gentleman who unfortunately has multiple medical comorbidities, including utilization of steroids for his COPD. The patient has developed previous compression fractures in the past and had worsening back pain with lower extremity weakness and radiculopathy. Imaging demonstrated that he had a pathologic compression fracture of the L4 vertebral body as well as the superior endplate of L5 as well as severe spinal stenosis from L3 through L5 with an associated synovial cyst on the right side at the L3- 4 level. After discussion of the risks, benefits, and treatment alternatives and after failing nonoperative interventions, we decided to proceed forth with surgery as described above. DESCRIPTION OF PROCEDURE: Patient was brought to the operating theater and underwent general endotracheal anesthesia without complications. DESTINY Almendareze in place. He was flipped prone onto the Chacorta table and all bony processes were inspected and padded. During the positioning, he developed a superficial tear of his left forearm skin which is consistent with his utilization of steroids and very friable tissues. The lower lumbar region was then prepped and draped in usual sterile surgical fashion. A time-out was completed per protocol. The patient received antibiotics within 1 hour of incision. Using lateral fluoroscopy and a spinal needle, we then picked our entry point to the L3 through L5 levels. This was marked in the midline and incorporated his prior lumbar incision where he had a prior right-sided L3-4 decompression. The incision was infiltrated with Marcaine with epinephrine. The incision was taken down with the scalpel blade, then using the monopolar taken down the midline through the lumbodorsal fascia, and subperiosteal dissection carried to the medial facet joints of L3-L4, L4-5. Deep retractors were placed to maintain our exposure, and we confirmed our level using lateral fluoroscopy. We attached the 3D Stealth navigation clamp down the spinous process of L5 and completed a 3D Stealth navigation spin. Using 3D Stealth navigation and the Nuno needle, we cannulated the L4 and L5 vertebral bodies independently from an extrapedicular manner on the right side. The L4 anterior body was noted to be completely flattened and it was very difficult to cannulate. However, we placed a K-wire into each of the L4 and L5 levels into the fracture sites. We then placed balloons under live AP and lateral fluoroscopic images which we then inflated to create a cavity at the levels of the fractures both at L4 and L5. We then withdrew the balloons and placed the cement delivery systems independently into the L4 and L5 vertebral bodies in the cavities that we created in the pathologic fractures. At this point, using live fluoroscopic images at AP and lateral images, we had injected approximately 2.5 mm of cement into the L4 vertebral body as well as 5 mm of cement into the L5 vertebral body until we had evidence of some posterior migration of the spine. There was no evidence of any vascular uptake or extravasation of cement outside the vertebral bodies. Once we felt that we had good cement filling of the fractures , we withdrew the cement delivery systems. At this point, using a combination of the bur tip on the drill bit, Kerrison punches and Leksell rongeurs, we completed a decompressive laminectomy at L3-L4 , and L4-L5. We resected the synovial cyst on the right side at the L3-4 level. Once we felt that everything was well decompressed on manual palpation, we obtained hemostasis with the bipolar. The wound was irrigated copiously with bacitracin irrigation, and the drain left in the subfascial space. The wound was then closed in multiple layers using Vicryl sutures for the deep layers and Dermabond for the skin. The patient's wounds were dressed sterilely. He was then flipped supine onto the transfer cart, where he was awakened, extubated, taken to recovery room in stable condition. There were no complications and no noted changes on neuromonitoring throughout the procedure. /[id number]/MODL MTDD
[2016-10-11] MEDS: LOSARTAN POTASSIUM 50 MG TAB PO SCH (21:58)
[2016-10-11] MEDS: MONTELUKAST SODIUM 10 MG TAB PO SCH (21:59)
[2016-10-11] MEDS: OXYCODONE/APAP 5/325 TAB PO PRN (23:29)
[2016-10-12] MEDS: HYDROCORTISONE 100 MG/2 ML VIAL IVP SCH (05:00)
[2016-10-12 05:55] LABS: % IMMATURE GRANULYOCYTES 0.5 % (0.0-1.1); ABSOLUTE IMMATURE GRANULOCYTES 0.03 10^3/uL (0.00-0.10); ADD DIFF? NO; ADD MORPH? NO; ADD SCAN? NO; ATYPICAL LYMPHOCYTE FLAG 0 (0-99); FRAGMENT RBC FLAG 0 (0-99); HEMATOCRIT 25.8 % (40.0-51.0); HEMOGLOBIN 8.7 g/dL (13.7-17.5); LEFT SHIFT FLG 0 (0-99); LIPEMIA HEMOLYSIS FLAG 80 (0-99); MEAN CELL HEMOGLOBIN CONCENTR. 33.7 g/dL (32.4-36.7); MEAN CELL VOLUME 94.9 fL (81.5-99.8); MEAN PLATELET VOLUME 8.1 fL (8.7-11.7); PLATELET CLUMPS FLAG 0 (0-99); PLATELET COUNT 223 10^3/uL (150-400); RED BLOOD CELL COUNT 2.72 10^6/uL (4.40-6.38); RED CELL DISTRIBUTION WIDTH 14.6 % (11.5-15.2)
[2016-10-12] MEDS: IPRATROPIUM/ALBUTEROL 3 ML DEYVIAL IH SCH ×4 (06:06→20:30)
[2016-10-12 06:11] LABS: ANION GAP 6 mEq/L (8-16); CALCIUM 8.4 mg/dL (8.5-10.4); CARBON DIOXIDE 25 mEq/l (22-31); CHLORIDE 108 mEq/L (97-110); CREATININE 0.8 mg/dL (0.7-1.3); GLOMERULAR FILTRATION RATE > 60; GLUCOSE 129 mg/dL (70-100); SODIUM 139 mEq/L (134-144)
[2016-10-12] MEDS: INSULIN LISPRO 100 UNIT/ML SC SCH ×3 (08:13→18:14)
[2016-10-12] MEDS: OXYCODONE/APAP 5/325 TAB PO PRN ×3 (08:14→21:58)
[2016-10-12] MEDS: SENNOSIDES/DOCUSATE SODIUM TAB PO SCH ×2 (08:15→21:57)
[2016-10-12] MEDS: ALLOPURINOL 100 MG TAB PO SCH (08:17)
[2016-10-12] MEDS: FERROUS SULFATE 325 MG TAB PO SCH (08:17)
[2016-10-12] MEDS: FUROSEMIDE 40 MG TAB PO SCH (08:17)
[2016-10-12] MEDS: FAMOTIDINE 20 MG TAB PO SCH ×2 (08:17→21:58)
[2016-10-12] MEDS: PANTOPRAZOLE SODIUM 40 MG TAB PO SCH (08:17)
[2016-10-12] MEDS: predniSONE 10 MG TAB PO SCH (08:17)
--- NOTE | 2016-10-12 08:48 | HOSPPROG ---
Hospitalist Progress Note Assessment/Plan: Patient is a 71-year-old male presented to the emergency room with worsening low back pain with right lower extremity weakness. #. Lumbar back pain after sustaining a fall * S/p L3-L4 decompressive laminectomy, L4 & L5 kyphoplasty #. chronic hypoxemic respiratory failure * at his baseline on 4 L * chest x-ray shows some concern for possible pneumonia. Patient is not febrile and does not have any signs or symptoms of pneumonia. #. anemia * hemoglobin hematocrit are stable #. chronic COPD / no exacerbation * on chronic steroids / low-dose prednisone #. Prediabetes * hold metformin. SSI #. gait instability * will have PT and OT see him after surgery #. left diabetic foot ulcer/osteomyelitis * on vancomycin and ertapenem * wound Care following / will have dressing changes every other day #. HTN * cont home meds * stable #. bradycardia #. Gout * allopurinol #Atrial fibrillation/ history of this * he is in sinus rhythm * Restart ASA after surgery when ok by NSGY #Diet: DM, #DVT ppx: SCDs/ will need Lovenox when okay with surgical team Subjective: Marino is eating breakfast/ appetite is good/ no c/o pain. Objective: Vital Signs Temp Pulse Resp BP Pulse Ox 35.5 C L 42 L 10 L 135/70 H 94 10/12/16 07:22 10/12/16 07:22 10/12/16 07:22 10/12/16 07:22 10/12/16 07:22 Laboratory Results 10/12/16 05:40 10/12/16 05:40 10/11/16 10/12/16 10/13/16 05:59 05:59 05:59 Intake Total 2065 1450 Output Total 500 195 200 Balance 1565 1255 -200 PT 14.4 SEC (12.0-15.0) 10/09/16 04:50 INR 1.13 (0.83-1.16) 10/09/16 04:50 - Physical Exam Constitutional: not in pain, chronically ill appearing Eyes: PERRL Ears, Nose, Mouth, Throat: hearing normal Respiratory: no respiratory distress Gastrointestinal: normoactive bowel sounds Skin: warm, other (left foot with dressing in place) Musculoskeletal: generalized weakness Neurologic: AAOx3 Psychiatric: interacting appropriately, not anxious ICD10 Worksheet Patient Problems: Problems Problem Status Diagnosed Closed compression fracture of L1 lumbar vertebral body Acute Compression fracture of L3 lumbar vertebra Acute Compression fracture of L4 lumbar vertebra Acute Cellulitis of left foot Acute MRSA (methicillin resistant Staphylococcus aureus) Acute 09/14/16
[2016-10-12] MEDS: FLUTICASONE/SALMETER 500/50MCG DISKUS IH SCH ×2 (09:38→20:32)
--- NOTE | 2016-10-12 09:44 | NEUSURGPN ---
Assessment/Plan: 71 y/o male with lumbar stenosis and lumbar compression fractures (L4 and L5). Now POD #1 L3-L5 laminectomy, L4 and L5 kyphoplasty -Advance diet as tolerated -PTOT -Optimize pain management -DELONTE x1 continue today -SIlver dressing: continue for 7 days post op adn then change tp dressing daily dressing changes. -DVT prophx: TEDs, SCDs, Lovenox/hep Sq okay to restart this evening -Please notify SN with any change in neuro/motor exam Subjective: back pain improved. Objective: NAD A&Ox3 MAEx4, 5/5 and equal in BUE and BLE. DELONTE drain serosanguineous - Physician Discussed Patient with : Volodymyr Neurosurgery Physical Exam - Vitals, I&O, Labs I and O 10/11/16 10/12/16 10/13/16 05:59 05:59 05:59 Intake Total 2065 1450 Output Total 500 195 200 Balance 1565 1255 -200 Intake: Oral (ml) 1150 200 IV Intake (ml) 1000 IV Infused (ml) 915 250 Ertapenem 1 gm In Ns 100 100 ml @ 200 mls/hr IV DAILY21 [facility] Rx#: [id number] Vancomycin 1 gm In Ns 250 815 ml @ 250 mls/hr IV Q24H [facility] Rx#:[id number] Vancomycin HCl/Normal 250 Saline 250 ml @ 250 mls/ hr IV Q24H [facility] Rx#: [id number] Output: Urine (ml) 500 200 Urinal 500 200 Estimated Blood Loss (ml) 80 Wound Drainage (ml) 115 Back Chacorta Baca 115 Other: Intake Quantity Yes Sufficient Number of Voids Urinal 3 1 Bedside Commode 1 Number of Stools Bedside Commode 1 Vital Signs Temp Pulse Resp BP Pulse Ox 35.5 C L 42 L 10 L 135/70 H 94 10/12/16 07:22 10/12/16 07:22 10/12/16 07:22 10/12/16 07:22 10/12/16 07:22 Laboratory Results 10/12/16 05:40 10/12/16 05:40 ICD10 Worksheet Patient Problems: Problems Problem Status Diagnosed Closed compression fracture of L1 lumbar vertebral body Acute Compression fracture of L3 lumbar vertebra Acute Compression fracture of L4 lumbar vertebra Acute Cellulitis of left foot Acute MRSA (methicillin resistant Staphylococcus aureus) Acute 09/14/16
[2016-10-12] MEDS: VANCOMYCIN HCL/NORMAL SALINE 250 ML IV SCH (13:15)
--- NOTE | 2016-10-12 16:46 | WOCRNPDOC ---
[facility] Advanced Assessment Note - Skin Integrity Problem, Advanced Assess Forehead Pressure Injury Dressing Type: Open to Air Deanna Wound Tissue: Blanching (blanching erythema approx 1x7x0 cm across forehead. ), Erythema, Non-blanching (directly surrounding open wound) Site Measurement - Head-to-Toe Length X Width X Depth (cm): 0.2x0.3x0.1 Pressure Injury Stage: Stage 2, Social Services Analyst Related Pressure Injury Pressure Injury Present on Admit: No Skin Integrity Problem Comment: May be from positioning during back surgery. Right Lower Arm Skin Tears Dressing Type: Tegaderm Film, Telfa Dressing Description: Intact, Saturated Exudate Amount: Moderate Exudate Characteristic(s): Serosanguinous Integumentary Issue Intervention: Dressing Changed Deanna Wound Tissue: Ecchymotic, Erythema Deanna Wound Swelling: Mild Wound Bed Constitution: Smooth Tissue Site Measurement - Head-to-Toe Length X Width X Depth (cm): Proximal: 0.3x1.5x0.1, distal 0.5x3x0.2 Skin Integrity Problem Comment: Proximal skin tear: Category 2a. Partial flap was realigned on assessment. Did not apply steri strips due to extreemly fragile skin. Distal skin tear category 2b. Applied wound gel to open areas, covered with adaptic touch and them mepilex. Wrapped with alyssa. Rn Leanna in room. Per pts injury occured in surgery and was dressed post operatively yesterday. Left Heel Pressure Injury Dressing Type: Allevyn Life Dressing Description: Clean/Dry, Intact Integumentary Issue Intervention: Dressing Removed Deanna Wound Tissue: Macerated (moderate-severe) Deanna Wound Swelling: None Wound Bed Color: Purple, Red Wound Bed Constitution: Granulation Tissue Wound Edges: Epithelizing, Attached Site Measurement - Head-to-Toe Length X Width X Depth (cm): 0.6x1.7x0.2 Pressure Injury Present on Admit: Yes Skin Integrity Problem Comment: Dressing orders will be changed as wound is too macerated. Patient's expressed concern over the wound. There is a dark purple area in wound and perhaps deanna wound (difficult to assess fully due to extensive maceration) that may be a new deep tissue injury within the existing wound. It is located around 3 oclock. Will watch area closely. Please offload bilateral heels at all times. Patient had own offloading boot made of foam he was using from home on assessment, and other heel was loaded on the mattress. Asked RN to obtain and place bilateral heel boots. Left First Metatarsal Head Surgical Wound/Incision Dressing Type: Allevyn Life, Silver Packing Dressing Description: Clean/Dry, Intact Exudate Amount: None Integumentary Issue Intervention: Dressing Changed Deanna Wound Swelling: None Wound Bed Color: Red, Yellow Wound Bed Constitution: Granulation Tissue (50%), Adhered Slough (50%) Site Measurement - Head-to-Toe Length X Width X Depth (cm): 3.5x1.6x1.2 Skin Integrity Problem Comment: Patient and both quite concerned about the size of the machine and it impacting patient's mobility. Discussed at length vac use, placement, indication, dressing change freqency,and how to move around with the vac. They consented to trialing it. Wound flushed with ns. Skin prep deanna wound and drape to dorsal foot. 1 piece of small foam in wound bed. Vac set at -125mm Hg continous suction with no leaks.
--- NOTE | 2016-10-12 17:04 | PCMIDPN ---
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 Patient is on both vancomycin and ertapenem. He is stable on these medications. Plan to continue these for 6 weeks total. Duration starts from date of prior surgery which was 09/14/2016. This makes an date 10/25/2016. In the meantime the patient had a fall at home and acute onset right lower extremity pain and weakness. Determination that he had multiple lumbar levels of compression fracture as well as acute severe spinal stenosis. He went for decompression yesterday to the operating room. Today he has much less pain in the right lower extremity and has increased strength. No change in plans of coverage with antibiotics. Plan: 1. Continue both vancomycin and ertapenem. 2. Follow clinical course. 3. Wound dressing changes at least Q 48 hours. 4. Vancomycin trough prior to next dose. 10/12/16 17:01 10/12/16 17:02 Subjective: Patient is resting comfortably in his hospital bed. He denies any new complaint. States that his right lower extremity is much less painful after surgery. No fevers or chills. Objective: Vancomycin #2 Ertapenem #3 Vital Signs Temp Pulse Resp BP Pulse Ox 36.6 C 91 15 135/95 H 96 10/12/16 15:27 10/12/16 16:14 10/12/16 16:14 10/12/16 15:27 10/12/16 16:14 Laboratory Results 10/12/16 05:40 10/12/16 05:40 10/11/16 10/12/16 10/13/16 05:59 05:59 05:59 Intake Total 2065 1450 Output Total 500 195 200 Balance 1565 1255 -200 - Physical Exam General Appearance: WD/WN, alert, no apparent distress, non-toxic Respiratory: lungs clear, normal breath sounds, No respiratory distress Cardiac/Chest: regular rate, rhythm, No tachycardia Extremities: non-tender, No normal inspection Skin: warm/dry, No rash Neuro/Psych: alert, normal mood/affect, oriented x 3 ICD10 Worksheet Patient Problems: Problems Problem Status Diagnosed Closed compression fracture of L1 lumbar vertebral body Acute Compression fracture of L3 lumbar vertebra Acute Compression fracture of L4 lumbar vertebra Acute Cellulitis of left foot Acute MRSA (methicillin resistant Staphylococcus aureus) Acute 09/14/16
[2016-10-12] MEDS: MONTELUKAST SODIUM 10 MG TAB PO SCH (18:14)
--- NOTE | 2016-10-12 18:48 | SOAPPROG ---
SOAP Progress Note Assessment/Plan: Assessment: 71 MALE WITH OSTEO LEFT FOOT SP SAUCERIZATION WOUND CLEAN/ AFEBRILE Plan: WOUND VAC 10/12/16 18:47 Objective: Vital Signs Temp Pulse Resp BP Pulse Ox 36.6 C 91 15 135/95 H 96 10/12/16 15:27 10/12/16 16:14 10/12/16 16:14 10/12/16 15:27 10/12/16 16:14 Laboratory Results 10/12/16 05:40 10/12/16 05:40 10/11/16 10/12/16 10/13/16 05:59 05:59 05:59 Intake Total 2065 1450 Output Total 500 195 440 Balance 1565 1255 -440 PT 14.4 SEC (12.0-15.0) 10/09/16 04:50 INR 1.13 (0.83-1.16) 10/09/16 04:50 ICD10 Worksheet Patient Problems: Problems Problem Status Diagnosed Closed compression fracture of L1 lumbar vertebral body Acute Compression fracture of L3 lumbar vertebra Acute Compression fracture of L4 lumbar vertebra Acute Cellulitis of left foot Acute MRSA (methicillin resistant Staphylococcus aureus) Acute 09/14/16
[2016-10-12] MEDS: CHOLECALCIFEROL VIT D3 2,000 UNITS TAB/CAP PO SCH (21:57)
[2016-10-12] MEDS: LOSARTAN POTASSIUM 50 MG TAB PO SCH (21:58)
[2016-10-12] MEDS: ATORVASTATIN CALCIUM 20 MG TAB PO SCH (21:58)
[2016-10-12] MEDS: ERTAPENEM 1 GM in NS 100 ML IV SCH (21:59)
[2016-10-13] MEDS: IPRATROPIUM/ALBUTEROL 3 ML DEYVIAL IH SCH ×4 (05:48→21:09)
[2016-10-13] MEDS: INSULIN LISPRO 100 UNIT/ML SC SCH ×3 (07:56→18:46)
--- NOTE | 2016-10-13 09:17 | PCMIDPN ---
Assessment/Plan: 1. 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 Jamison, patient will continue both vancomycin and ertapenem as is; stop date October 25. Recent vancomycin trough is okay. Check complete metabolic panel tomorrow on these 2 antibiotics. (I ordered) Subjective: In good spirits. Had a wound VAC placed on his left foot yesterday. does have some loose stool, but reports he is only going once daily with no abdominal discomfort or cramping. Objective: Vancomycin 1 g IV daily stop date October 25 Ertapenem 1 g IV daily stop date October 25 Afebrile Laboratory Tests 10/12/16 09:00 Vancomycin Trough 13.4 Vital Signs Temp Pulse Resp BP Pulse Ox 36.4 C 57 L 11 L 142/78 H 98 10/13/16 07:42 10/13/16 07:42 10/13/16 07:42 10/13/16 07:42 10/13/16 07:42 Laboratory Results 10/12/16 05:40 10/12/16 05:40 10/12/16 10/13/16 10/14/16 05:59 05:59 05:59 Intake Total 1450 Output Total 195 460 Balance 1255 -460 - Physical Exam General Appearance: alert, no apparent distress EENT: other (False teeth, no thrush) Extremities: other (Wound VAC in place over dorsum of left foot. No surrounding cellulitis. PICC line right upper extremity looks fine.), No erythema ICD10 Worksheet Patient Problems: Problems Problem Status Diagnosed Closed compression fracture of L1 lumbar vertebral body Acute Compression fracture of L3 lumbar vertebra Acute Compression fracture of L4 lumbar vertebra Acute Cellulitis of left foot Acute MRSA (methicillin resistant Staphylococcus aureus) Acute 09/14/16
--- NOTE | 2016-10-13 09:36 | SOAPPROG ---
SOAP Progress Note Assessment/Plan: Assessment/Plan - 71yo M s/p saucerization L foot - VAC successfully placed yesterday, holding suction appropriately. - No other concerning areas on my exam today - Plan to cont BS abx per ID - No activity precautions from GS standpoint for L foot, defer to NSG for activity orders 10/13/16 09:35 Objective: Vital Signs Temp Pulse Resp BP Pulse Ox 36.4 C 57 L 11 L 142/78 H 98 10/13/16 07:42 10/13/16 07:42 10/13/16 07:42 10/13/16 07:42 10/13/16 07:42 Laboratory Results 10/12/16 05:40 10/12/16 05:40 10/12/16 10/13/16 10/14/16 05:59 05:59 05:59 Intake Total 1450 Output Total 195 460 Balance 1255 -460 PT 14.4 SEC (12.0-15.0) 10/09/16 04:50 INR 1.13 (0.83-1.16) 10/09/16 04:50 ICD10 Worksheet Patient Problems: Problems Problem Status Diagnosed Closed compression fracture of L1 lumbar vertebral body Acute Compression fracture of L3 lumbar vertebra Acute Compression fracture of L4 lumbar vertebra Acute Cellulitis of left foot Acute MRSA (methicillin resistant Staphylococcus aureus) Acute 09/14/16
[2016-10-13] MEDS: VANCOMYCIN HCL/NORMAL SALINE 250 ML IV SCH (09:56)
[2016-10-13] MEDS: ENOXAPARIN 40 MG/0.4 ML SYR SC SCH (09:57)
[2016-10-13] MEDS: predniSONE 10 MG TAB PO SCH (09:57)
[2016-10-13] MEDS: FAMOTIDINE 20 MG TAB PO SCH ×2 (09:57→21:25)
[2016-10-13] MEDS: ALLOPURINOL 100 MG TAB PO SCH (09:57)
[2016-10-13] MEDS: FUROSEMIDE 40 MG TAB PO SCH (09:57)
[2016-10-13] MEDS: PANTOPRAZOLE SODIUM 40 MG TAB PO SCH (09:57)
[2016-10-13] MEDS: FERROUS SULFATE 325 MG TAB PO SCH (09:57)
[2016-10-13] MEDS: FLUTICASONE/SALMETER 500/50MCG DISKUS IH SCH ×2 (09:58→21:10)
[2016-10-13] MEDS: SENNOSIDES/DOCUSATE SODIUM TAB PO SCH ×2 (09:58→21:26)
[2016-10-13] MEDS: OXYCODONE/APAP 5/325 TAB PO PRN ×3 (09:58→21:25)
--- NOTE | 2016-10-13 11:43 | NEUSURGPN ---
Date of Surgery: 10/10/16 Post Op Day: 3 Assessment/Plan: 71 y/o male with lumbar stenosis and lumbar compression fractures (L4 and L5). Now POD #1 L3-L5 laminectomy, L4 and L5 kyphoplasty -Advance diet as tolerated -PT/OT, he is not ready for d/c yet -Optimize pain management, it is much improved -DELONTE d/c today -SIlver dressing: continue for 7 days post op adn then change tp dressing daily dressing changes. -DVT prophx: TEDs, SCDs, Lovenox/hep Sq okay to restart this evening -Please notify SN with any change in neuro/motor exam Subjective: mild to moderate pain, much improved but not ready to go home Objective: NAD A&Ox3 MAEx4, 5/5 and equal in BUE and BLE. DELONTE drain serosanguineous - Physician Patient Seen by : Izzy Neurosurgery Physical Exam - Vitals, I&O, Labs I and O 10/12/16 10/13/16 10/14/16 05:59 05:59 05:59 Intake Total 1450 Output Total 195 460 Balance 1255 -460 Intake: Oral (ml) 200 IV Intake (ml) 1000 IV Infused (ml) 250 Vancomycin HCl/Normal 250 Saline 250 ml @ 250 mls/ hr IV Q24H [facility] Rx#: [id number] Output: Urine (ml) 400 Urinal 400 Estimated Blood Loss (ml) 80 Wound Drainage (ml) 115 60 Back Chacorta Baca 115 60 Other: Intake Quantity Yes Yes Sufficient Number of Voids Urinal 1 Bedside Commode 1 Number of Stools Incontinence 1 Bedside Commode 1 Vital Signs Temp Pulse Resp BP Pulse Ox 36.4 C 57 L 11 L 142/78 H 98 10/13/16 07:42 10/13/16 07:42 10/13/16 07:42 10/13/16 07:42 10/13/16 07:42 Laboratory Results 10/12/16 05:40 10/12/16 05:40 ICD10 Worksheet Patient Problems: Problems Problem Status Diagnosed Closed compression fracture of L1 lumbar vertebral body Acute Compression fracture of L3 lumbar vertebra Acute Compression fracture of L4 lumbar vertebra Acute Cellulitis of left foot Acute MRSA (methicillin resistant Staphylococcus aureus) Acute 09/14/16
--- NOTE | 2016-10-13 17:43 | HOSPPROG ---
Hospitalist Progress Note Assessment/Plan: Patient is a 71-year-old male presented to the emergency room with worsening low back pain with right lower extremity weakness. #. Lumbar back pain after sustaining a fall * S/p L3-L4 decompressive laminectomy, L4 & L5 kyphoplasty #. chronic hypoxemic respiratory failure * at his baseline on 4 L * chest x-ray shows some concern for possible pneumonia. Patient is not febrile and does not have any signs or symptoms of pneumonia. #. anemia * hemoglobin /hematocrit are stable #. chronic COPD / no exacerbation * on chronic steroids / low-dose prednisone #. Prediabetes * hold metformin. SSI #. gait instability * Physical therapy and occupational therapy are working with him #. left diabetic foot ulcer/osteomyelitis * wound VAC in place * on vancomycin and ertapenem * wound Care following / will have dressing changes every other day #. HTN * cont home meds * a bit elevated this morning #. bradycardia * asymptomatic #. Gout * allopurinol #Atrial fibrillation/ history of this * he is in sinus rhythm * Restart ASA after surgery when ok by NSGY #DVT ppx: low-molecular weight heparin # plan. Continue current treatment. Patient does not want to go to any type of care home facility. Per his they have stairs in their home and he will have a wound VAC in place. He also needs IV antibiotics. Will await Physical therapy's evaluation tomorrow and see how he does. Subjective: patient has no specific complaints. Objective: Vital Signs Temp Pulse Resp BP Pulse Ox 36.8 C 58 L 18 151/78 H 94 10/13/16 15:25 10/13/16 17:20 10/13/16 17:20 10/13/16 15:25 10/13/16 17:20 Laboratory Results 10/12/16 05:40 10/12/16 05:40 10/12/16 10/13/16 10/14/16 05:59 05:59 05:59 Intake Total 1450 Output Total 195 460 Balance 1255 -460 PT 14.4 SEC (12.0-15.0) 10/09/16 04:50 INR 1.13 (0.83-1.16) 10/09/16 04:50 - Physical Exam Constitutional: no apparent distress, chronically ill appearing Eyes: PERRL Ears, Nose, Mouth, Throat: hearing normal Cardiovascular: regular rate and rhythym Respiratory: no respiratory distress, reduced air movement ( Bibasilar) Gastrointestinal: normoactive bowel sounds Skin: other ( back incision well approximated no drainage noted. Left foot has a wound VAC in place toes are reddened. He has multiple small ecchymotic areas from being on prednisone) Musculoskeletal: generalized weakness Neurologic: AAOx3 Psychiatric: interacting appropriately ICD10 Worksheet Patient Problems: Problems Problem Status Diagnosed Closed compression fracture of L1 lumbar vertebral body Acute Compression fracture of L3 lumbar vertebra Acute Compression fracture of L4 lumbar vertebra Acute Cellulitis of left foot Acute MRSA (methicillin resistant Staphylococcus aureus) Acute 09/14/16
[2016-10-13] MEDS: NYSTATIN POWDER 15 GM BTL TP SCH ×2 (17:45→22:30)
[2016-10-13] MEDS: MONTELUKAST SODIUM 10 MG TAB PO SCH (18:13)
[2016-10-13] MEDS: ATORVASTATIN CALCIUM 20 MG TAB PO SCH (21:25)
[2016-10-13] MEDS: LOSARTAN POTASSIUM 50 MG TAB PO SCH (21:25)
[2016-10-13] MEDS: CHOLECALCIFEROL VIT D3 2,000 UNITS TAB/CAP PO SCH (21:26)
[2016-10-13] MEDS: ERTAPENEM 1 GM in NS 100 ML IV SCH (21:26)
[2016-10-14] MEDS: IPRATROPIUM/ALBUTEROL 3 ML DEYVIAL IH SCH ×5 (05:30→21:35)
[2016-10-14 05:51] LABS: ALANINE AMINOTRANSFERASE 35 IU/L (21-72); ALBUMIN 2.7 g/dL (3.5-5.0); ALKALINE PHOSPHATASE 131 IU/L (38-126); ANION GAP 7 mEq/L (8-16); ASPARTATE AMINOTRANSFERASE 30 IU/L (17-59); BILIRUBIN,TOTAL 0.4 mg/dL (0.1-1.4); CALCIUM 8.7 mg/dL (8.5-10.4); CARBON DIOXIDE 26 mEq/l (22-31); CHLORIDE 110 mEq/L (97-110); GLOMERULAR FILTRATION RATE > 60; GLUCOSE 84 mg/dL (70-100); POTASSIUM 4.1 mEq/L (3.5-5.2); SODIUM 143 mEq/L (134-144); TOTAL PROTEIN 5.1 g/dL (6.3-8.2)
[2016-10-14] MEDS: PANTOPRAZOLE SODIUM 40 MG TAB PO SCH (08:57)
[2016-10-14] MEDS: FERROUS SULFATE 325 MG TAB PO SCH (08:57)
[2016-10-14] MEDS: ENOXAPARIN 40 MG/0.4 ML SYR SC SCH (08:57)
[2016-10-14] MEDS: OXYCODONE/APAP 5/325 TAB PO PRN ×2 (08:57→18:19)
[2016-10-14] MEDS: FAMOTIDINE 20 MG TAB PO SCH ×2 (08:58→20:59)
[2016-10-14] MEDS: FUROSEMIDE 40 MG TAB PO SCH (08:58)
[2016-10-14] MEDS: INSULIN LISPRO 100 UNIT/ML SC SCH ×2 (08:58→13:51)
[2016-10-14] MEDS: ALLOPURINOL 100 MG TAB PO SCH (08:58)
[2016-10-14] MEDS: predniSONE 10 MG TAB PO SCH (08:58)
[2016-10-14] MEDS: SENNOSIDES/DOCUSATE SODIUM TAB PO SCH ×2 (08:59→21:01)
[2016-10-14] MEDS: VANCOMYCIN HCL/NORMAL SALINE 250 ML IV SCH (08:59)
[2016-10-14] MEDS: FLUTICASONE/SALMETER 500/50MCG DISKUS IH SCH ×2 (09:16→21:36)
[2016-10-14] MEDS: NYSTATIN POWDER 15 GM BTL TP SCH ×3 (09:16→21:01)
--- NOTE | 2016-10-14 10:35 | NEUSURGPN ---
Date of Surgery: 10/11/16 Post Op Day: 3 Assessment/Plan: 71 y/o male with lumbar stenosis and lumbar compression fractures (L4 and L5). Now POD #3 L3-L5 laminectomy, L4 and L5 kyphoplasty -PT/OT -Optimize pain management, it is much improved -SIlver dressing: continue for 7 days post op adn then change tp dressing daily dressing changes. -pt may shower with dressing covered -DVT prophx: TEDs, SCDs, Lovenox/hep Sq okay to restart this evening -d/c planning for rehab vs. snf -Please notify SN with any change in neuro/motor exam Subjective: no complaints, back pain is improved Objective: AAOx3 strength full, sensation normal dressing intact - Physician Patient Seen by : Izzy Neurosurgery Physical Exam - Vitals, I&O, Labs I and O 10/13/16 10/14/16 10/15/16 05:59 05:59 05:59 Output Total 460 500 Balance -460 -500 Output: Urine (ml) 400 500 Urinal 400 500 Wound Drainage (ml) 60 Back Chacorta Baca 60 Other: Intake Quantity Yes Yes Sufficient Number of Voids Urinal 1 1 Bedside Commode 1 Number of Stools Incontinence 1 Bedside Commode 1 Vital Signs Temp Pulse Resp BP Pulse Ox 36.4 C 61 14 129/63 H 97 10/14/16 07:34 10/14/16 07:34 10/14/16 07:34 10/14/16 07:34 10/14/16 07:34 Laboratory Results 10/12/16 05:40 10/14/16 04:40 ICD10 Worksheet Patient Problems: Problems Problem Status Diagnosed Closed compression fracture of L1 lumbar vertebral body Acute Compression fracture of L3 lumbar vertebra Acute Compression fracture of L4 lumbar vertebra Acute Cellulitis of left foot Acute MRSA (methicillin resistant Staphylococcus aureus) Acute 09/14/16
--- NOTE | 2016-10-14 13:22 | HOSPPROG ---
Hospitalist Progress Note Assessment/Plan: Patient is a 71-year-old male presented to the emergency room with worsening low back pain with right lower extremity weakness. #. Lumbar back pain after sustaining a fall * S/p L3-L4 decompressive laminectomy, L4 & L5 kyphoplasty #. chronic hypoxemic respiratory failure * at his baseline on 4 L * chest x-ray shows some concern for possible pneumonia. Patient is not febrile and does not have any signs or symptoms of pneumonia. #. anemia * hemoglobin /hematocrit are stable #. chronic COPD / no exacerbation * on chronic steroids / low-dose prednisone #. Prediabetes * hold metformin * patient doesn't want glucoses checked and doesn't want insulin * will dc both per his requests/glucose stable today #. gait instability * Physical therapy and occupational therapy are working with him #. left diabetic foot ulcer/osteomyelitis * wound VAC in place * on vancomycin and ertapenem * wound Care following / will have dressing changes every other day #. HTN * cont home meds * a bit elevated this morning #. bradycardia * asymptomatic #. Gout * allopurinol #Atrial fibrillation/ history of this * he is in sinus rhythm * Restart ASA after surgery when ok by NSGY #DVT ppx: low-molecular weight heparin # plan. wound vac / Dr Jamison to see patient tomorrow who knows the patient/ he only wants to go home, but will be difficult with stairs and wound vac. Also , is on IV abx. Subjective: Los is feeling well/ has no complaints. Objective: Vital Signs Temp Pulse Resp BP Pulse Ox 36.4 C 61 14 129/63 H 97 10/14/16 07:34 10/14/16 07:34 10/14/16 07:34 10/14/16 07:34 10/14/16 07:34 Laboratory Results 10/12/16 05:40 10/14/16 04:40 10/13/16 10/14/16 10/15/16 05:59 05:59 05:59 Output Total 460 500 300 Balance -460 -500 -300 PT 14.4 SEC (12.0-15.0) 10/09/16 04:50 INR 1.13 (0.83-1.16) 10/09/16 04:50 - Physical Exam Constitutional: no apparent distress, appears nourished, not in pain, chronically ill appearing Eyes: PERRL Ears, Nose, Mouth, Throat: hearing normal Cardiovascular: regular rate and rhythym Respiratory: no respiratory distress, reduced air movement (bibasilar) Gastrointestinal: normoactive bowel sounds Skin: warm, other (wound vac on left foot/toes reddened and cool to the touch) Musculoskeletal: generalized weakness Neurologic: AAOx3 Psychiatric: interacting appropriately ICD10 Worksheet Patient Problems: Problems Problem Status Diagnosed Closed compression fracture of L1 lumbar vertebral body Acute Compression fracture of L3 lumbar vertebra Acute Compression fracture of L4 lumbar vertebra Acute Cellulitis of left foot Acute MRSA (methicillin resistant Staphylococcus aureus) Acute 09/14/16
[2016-10-14] MEDS: MONTELUKAST SODIUM 10 MG TAB PO SCH (18:19)
[2016-10-14] MEDS: ERTAPENEM 1 GM in NS 100 ML IV SCH (20:58)
[2016-10-14] MEDS: CHOLECALCIFEROL VIT D3 2,000 UNITS TAB/CAP PO SCH (20:58)
[2016-10-14] MEDS: ATORVASTATIN CALCIUM 20 MG TAB PO SCH (20:58)
[2016-10-14] MEDS: LOSARTAN POTASSIUM 50 MG TAB PO SCH (20:59)
[2016-10-15] MEDS: IPRATROPIUM/ALBUTEROL 3 ML DEYVIAL IH SCH ×4 (04:59→21:45)
[2016-10-15] MEDS: VANCOMYCIN HCL/NORMAL SALINE 250 ML IV SCH (08:49)
[2016-10-15] MEDS: FAMOTIDINE 20 MG TAB PO SCH ×2 (08:54→22:39)
[2016-10-15] MEDS: FERROUS SULFATE 325 MG TAB PO SCH (08:54)
[2016-10-15] MEDS: ENOXAPARIN 40 MG/0.4 ML SYR SC SCH (08:54)
[2016-10-15] MEDS: SENNOSIDES/DOCUSATE SODIUM TAB PO SCH ×2 (08:54→23:44)
[2016-10-15] MEDS: PANTOPRAZOLE SODIUM 40 MG TAB PO SCH (08:54)
[2016-10-15] MEDS: ALLOPURINOL 100 MG TAB PO SCH (08:54)
[2016-10-15] MEDS: HYDROCODONE/APAP 5/325 TAB PO PRN (08:54)
[2016-10-15] MEDS: FUROSEMIDE 40 MG TAB PO SCH (08:54)
[2016-10-15] MEDS: predniSONE 10 MG TAB PO SCH (08:54)
--- NOTE | 2016-10-15 09:43 | SOAPPROG ---
SOAP Progress Note Assessment/Plan: Assessment: 71yo male s/p saucerization left foot, VAC placed Saturday No new pain, leg feels fine PE VAC removed, left medial foot wound small amount of granulation tissue, no surrounding erythema or fluctuance Plan: continue VAC changes when discharged pt will F/U in our office as originally planned 10/15/16 09:41 Objective: Vital Signs Temp Pulse Resp BP Pulse Ox 36.6 C 71 16 145/69 H 96 10/15/16 07:38 10/15/16 07:38 10/15/16 07:38 10/15/16 07:38 10/15/16 07:38 Laboratory Results 10/12/16 05:40 10/14/16 04:40 10/14/16 10/15/16 10/16/16 05:59 05:59 05:59 Intake Total 850 Output Total 500 800 250 Balance -500 50 -250 PT 14.4 SEC (12.0-15.0) 10/09/16 04:50 INR 1.13 (0.83-1.16) 10/09/16 04:50 ICD10 Worksheet Patient Problems: Problems Problem Status Diagnosed Closed compression fracture of L1 lumbar vertebral body Acute Compression fracture of L3 lumbar vertebra Acute Compression fracture of L4 lumbar vertebra Acute Cellulitis of left foot Acute MRSA (methicillin resistant Staphylococcus aureus) Acute 09/14/16
[2016-10-15] MEDS: FLUTICASONE/SALMETER 500/50MCG DISKUS IH SCH ×2 (10:17→21:45)
[2016-10-15] MEDS: NYSTATIN POWDER 15 GM BTL TP SCH ×3 (11:28→22:37)
--- NOTE | 2016-10-15 11:31 | SOAPPROG ---
SOAP Progress Note Assessment/Plan: Assessment: 71 yo M POD #4 L3-5 laminectomy and L4, L5 kyphoplasty Plan: stable and doing well overall :) PT/OT scd/rob/lovenox for dvt prophylaxis dc partner integration planner to eval dc options please call with neuro changes discussed with Dr Helm 10/15/16 11:28 Subjective: back pain improving, no leg pain Objective: Vital Signs Temp Pulse Resp BP Pulse Ox 36.6 C 71 16 145/69 H 96 10/15/16 07:38 10/15/16 07:38 10/15/16 07:38 10/15/16 07:38 10/15/16 07:38 Laboratory Results 10/12/16 05:40 10/14/16 04:40 10/14/16 10/15/16 10/16/16 05:59 05:59 05:59 Intake Total 850 Output Total 500 800 250 Balance -500 50 -250 PT 14.4 SEC (12.0-15.0) 10/09/16 04:50 INR 1.13 (0.83-1.16) 10/09/16 04:50 AAOX4, +FC PERRL, EOMI, no facial droop 5/5 + light touch C/D/I ICD10 Worksheet Patient Problems: Problems Problem Status Diagnosed Closed compression fracture of L1 lumbar vertebral body Acute Compression fracture of L3 lumbar vertebra Acute Compression fracture of L4 lumbar vertebra Acute Cellulitis of left foot Acute MRSA (methicillin resistant Staphylococcus aureus) Acute 09/14/16
--- NOTE | 2016-10-15 12:59 | WOCRNPDOC ---
[facility] Advanced Assessment Note - Skin Integrity Problem, Advanced Assess Left First Metatarsal Head Surgical Wound/Incision Dressing Type: Gauze Dressing Description: Clean/Dry, Intact Exudate Amount: Scant Exudate Characteristic(s): Serosanguinous Integumentary Issue Intervention: Dressing Changed Wound Bed Constitution: Granulation Tissue (50%), Smooth Tissue (50%) Site Odor: None Site Measurement - Head-to-Toe Length X Width X Depth (cm): 3.2x1.4x1 Skin Integrity Problem Comment: Flushed with ns. Skin prep and drape sam wound. One piece of black foam to wound bed (small simplace) bridged to dorsal foot over drape. Vac restarted at - 125 mm Hg continuous suction no leaks. 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 Left Heel Pressure Injury Dressing Type: Open to Air Wound Bed Constitution: Dried Exudate Site Measurement - Head-to-Toe Length X Width X Depth (cm): 0.8x1.7x0 Skin Integrity Problem Comment: Dressing missing. Wound bed dried out. Discussed with Odette Handy.
--- NOTE | 2016-10-15 13:30 | HOSPPROG ---
Hospitalist Progress Note Assessment/Plan: Patient is a 71-year-old male presented to the emergency room with worsening low back pain with right lower extremity weakness. #. Lumbar back pain after sustaining a fall * S/p L3-L4 decompressive laminectomy, L4 & L5 kyphoplasty #. chronic hypoxemic respiratory failure * at his baseline on 4 L #. anemia * hemoglobin /hematocrit are stable #. chronic COPD / no exacerbation * on chronic steroids / low-dose prednisone #. Prediabetes * hold metformin * patient doesn't want glucoses checked and doesn't want insulin * this has been dc #. gait instability * Physical therapy and occupational therapy are working with him #. left diabetic foot ulcer/osteomyelitis * wound VAC replaced today (appreciate direct service provider) * on vancomycin and ertapenem * wound Care following / will have dressing changes every other day #. HTN * cont home meds * a bit elevated this morning #. bradycardia * asymptomatic #. Gout * allopurinol #Atrial fibrillation/ history of this * he is in sinus rhythm * Restart ASA after surgery when ok by NSGY #DVT ppx: low-molecular weight heparin # plan. cont current treatment/ patient only wants to go home/ unlikely to be able to do stairs with wound vac in place/ also, receiving IV abx. CM has spoken to him in regards to this. He was declining as of yesterday. DC pending per neurosurgery and ID. Subjective: Los said his foot is feeling better/ back is better. Objective: Vital Signs Temp Pulse Resp BP Pulse Ox 36.6 C 71 16 145/69 H 96 10/15/16 07:38 10/15/16 07:38 10/15/16 07:38 10/15/16 07:38 10/15/16 07:38 Laboratory Results 10/12/16 05:40 10/14/16 04:40 10/14/16 10/15/16 10/16/16 05:59 05:59 05:59 Intake Total 850 Output Total 500 800 500 Balance -500 50 -500 PT 14.4 SEC (12.0-15.0) 10/09/16 04:50 INR 1.13 (0.83-1.16) 10/09/16 04:50 - Physical Exam Constitutional: no apparent distress, not in pain, chronically ill appearing Eyes: PERRL Ears, Nose, Mouth, Throat: hearing normal Cardiovascular: regular rate and rhythym Respiratory: no respiratory distress, reduced air movement (bibasilar) Gastrointestinal: normoactive bowel sounds Skin: warm, other (left foot w wound vac in place/ toes warm) Musculoskeletal: generalized weakness Neurologic: AAOx3 Psychiatric: interacting appropriately ICD10 Worksheet Patient Problems: Problems Problem Status Diagnosed Closed compression fracture of L1 lumbar vertebral body Acute Compression fracture of L3 lumbar vertebra Acute Compression fracture of L4 lumbar vertebra Acute Cellulitis of left foot Acute MRSA (methicillin resistant Staphylococcus aureus) Acute 09/14/16
--- NOTE | 2016-10-15 17:34 | PCMIDPN ---
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 Patient is on both vancomycin and ertapenem. He is stable on these medications. Plan to continue these for 6 weeks total. Duration starts from date of prior surgery which was 09/14/2016. This makes an date 10/25/2016. Lumbar spine surgery was a success. Patient recovering appropriately from this procedure. Maintains on both vancomycin and ertapenem. End date unchanged. Strongly recommended to the patient that he reconsider agreeing to go to rehabilitation for strengthening. I think he is at high risk for falls at home considering the VAC dressing on his foot as well as recent back surgery. Plan: 1. Continue both vancomycin and ertapenem. 2. Follow clinical course. 3. Wound dressing changes at least Q 48 hours. Subjective: Patient resting comfortably in bed. Denies any new complaint. States that his back is still sore postoperatively. Foot is doing well. Objective: Vancomycin # 5 Ertapenem # 6 Vital Signs Temp Pulse Resp BP Pulse Ox 36.7 C 82 16 145/81 H 98 10/15/16 15:25 10/15/16 15:25 10/15/16 15:25 10/15/16 15:25 10/15/16 15:25 Laboratory Results 10/12/16 05:40 10/14/16 04:40 10/14/16 10/15/16 10/16/16 05:59 05:59 05:59 Intake Total 850 Output Total 500 800 775 Balance -500 50 -775 - Physical Exam General Appearance: WD/WN, alert, no apparent distress, non-toxic Respiratory: lungs clear, normal breath sounds, No respiratory distress Cardiac/Chest: regular rate, rhythm, No tachycardia Skin: normal color, warm/dry, No rash Neuro/Psych: alert, normal mood/affect, oriented x 3 ICD10 Worksheet Patient Problems: Problems Problem Status Diagnosed Closed compression fracture of L1 lumbar vertebral body Acute Compression fracture of L3 lumbar vertebra Acute Compression fracture of L4 lumbar vertebra Acute Cellulitis of left foot Acute MRSA (methicillin resistant Staphylococcus aureus) Acute 09/14/16
[2016-10-15] MEDS: LOSARTAN POTASSIUM 50 MG TAB PO SCH (22:39)
[2016-10-15] MEDS: CHOLECALCIFEROL VIT D3 2,000 UNITS TAB/CAP PO SCH (22:41)
[2016-10-15] MEDS: ERTAPENEM 1 GM in NS 100 ML IV SCH (22:46)
[2016-10-15] MEDS: ATORVASTATIN CALCIUM 20 MG TAB PO SCH (22:46)
[2016-10-15] MEDS: MONTELUKAST SODIUM 10 MG TAB PO SCH (23:44)
[2016-10-16] MEDS: IPRATROPIUM/ALBUTEROL 3 ML DEYVIAL IH SCH ×4 (06:27→20:45)
--- NOTE | 2016-10-16 08:44 | HOSPPROG ---
Hospitalist Progress Note Assessment/Plan: Patient is a 71-year-old male presented to the emergency room with worsening low back pain with right lower extremity weakness. #. Lumbar back pain after sustaining a fall * S/p L3-L4 decompressive laminectomy, L4 & L5 kyphoplasty #. chronic hypoxemic respiratory failure * at his baseline on 4 L #. anemia * hemoglobin /hematocrit are stable #. chronic COPD / no exacerbation * on chronic steroids / low-dose prednisone #. Prediabetes * hold metformin * patient doesn't want glucoses checked and doesn't want insulin * this has been dc #. gait instability * Physical therapy and occupational therapy are working with him #. left diabetic foot ulcer/osteomyelitis * wound VAC replaced today (appreciate layout artist) * on vancomycin and ertapenem * wound Care following / will have dressing changes every other day #. HTN * cont home meds * a bit elevated this morning #. bradycardia * asymptomatic #. Gout * allopurinol #Atrial fibrillation/ history of this * he is in sinus rhythm * Restart ASA after surgery when ok by NSGY #DVT ppx: low-molecular weight heparin # plan. patient is willing to go to SNF/ok for neurosurgery to dc today/ patient will need close f/u with Dr Jamison/ continue his antibiotics as ordered here Subjective: Los is feeling fine/ back pain is well managed/ He is agreeable to go to SNF today as long as it's for a week. Objective: Vital Signs Temp Pulse Resp BP Pulse Ox 36.1 C 87 16 146/82 H 93 10/15/16 23:06 10/15/16 23:06 10/15/16 23:06 10/15/16 23:06 10/15/16 23:06 Laboratory Results 10/12/16 05:40 10/14/16 04:40 10/15/16 10/16/16 10/17/16 05:59 05:59 05:59 Intake Total 850 100 Output Total 800 1475 Balance 50 -1375 PT 14.4 SEC (12.0-15.0) 10/09/16 04:50 INR 1.13 (0.83-1.16) 10/09/16 04:50 - Physical Exam Constitutional: not in pain, chronically ill appearing Eyes: PERRL Ears, Nose, Mouth, Throat: hearing normal Cardiovascular: regular rate and rhythym Respiratory: no respiratory distress, reduced air movement (bibasilar) Gastrointestinal: normoactive bowel sounds Skin: warm, other (wound vac in place on left foot) Musculoskeletal: no muscle tenderness Neurologic: AAOx3 Psychiatric: interacting appropriately, not anxious, not encephalopathic ICD10 Worksheet Patient Problems: Problems Problem Status Diagnosed Closed compression fracture of L1 lumbar vertebral body Acute Compression fracture of L3 lumbar vertebra Acute Compression fracture of L4 lumbar vertebra Acute Cellulitis of left foot Acute MRSA (methicillin resistant Staphylococcus aureus) Acute 09/14/16
[2016-10-16] MEDS: ENOXAPARIN 40 MG/0.4 ML SYR SC SCH (09:02)
[2016-10-16] MEDS: FAMOTIDINE 20 MG TAB PO SCH ×2 (09:04→20:36)
[2016-10-16] MEDS: FERROUS SULFATE 325 MG TAB PO SCH (09:04)
[2016-10-16] MEDS: ALLOPURINOL 100 MG TAB PO SCH (09:04)
[2016-10-16] MEDS: FUROSEMIDE 40 MG TAB PO SCH (09:05)
[2016-10-16] MEDS: PANTOPRAZOLE SODIUM 40 MG TAB PO SCH (09:05)
[2016-10-16] MEDS: predniSONE 10 MG TAB PO SCH (09:05)
[2016-10-16] MEDS: SENNOSIDES/DOCUSATE SODIUM TAB PO SCH ×2 (09:06→23:09)
[2016-10-16] MEDS: NYSTATIN POWDER 15 GM BTL TP SCH ×3 (09:08→23:08)
[2016-10-16] MEDS: VANCOMYCIN HCL/NORMAL SALINE 250 ML IV SCH (09:13)
[2016-10-16] MEDS: FLUTICASONE/SALMETER 500/50MCG DISKUS IH SCH ×2 (09:15→20:45)
--- NOTE | 2016-10-16 09:56 | PDIAF ---
- Diagnosis Diagnosis: Left foot osteomyelitis Code Status: Full Code - Medication Management Discharge Medications: Medications to Continue on Transfer Prednisone 10 mg PO DAILY 04/12/11 [Last Taken 10/07/16] SIMVASTATIN [Zocor] 40 mg PO HS 04/12/11 [Last Taken 10/07/16] Zafirlukast [Accolate 20 MG] 20 mg PO BID@1000,2000 04/12/11 [Last Taken ] metFORMIN HCL [Glucophage 500 mg (*)] 1,000 mg PO BID 04/12/11 [Last Taken 10/07] Aspirin [Aspirin 81mg (*)] 81 mg PO HS 04/09/15 [Last Taken 10/07/16] Cholecalciferol (Vitamin D3) [Vitamin D3] 4,000 unit PO HS 04/09/15 [Last Taken 10/07/16] Fluticasone/Salmeter 500/50Mcg [Advair 500/50 (*)] 1 puffs IH BID 04/09/15 [ Last Taken 10/07/16] Albuterol [Proventil Inhaler HFA (*)] 1 - 2 puffs IH DAILY PRN 08/31/16 [Last Taken 10/07/16] Allopurinol [Allopurinol 100 MG (*)] 100 mg PO DAILY 08/31/16 [Last Taken ] Ferrous Sulfate [Ferrous Sulf 325 MG (*)] 325 mg PO DAILY 08/31/16 [Last Taken 10/07/16] Furosemide [Lasix 40 MG (*)] 40 mg PO DAILY 08/31/16 [Last Taken 10/07/16] Ipratropium/Albuterol [Duoneb (*)] 3 ml IH QID 08/31/16 [Last Taken 10/07/16] Losartan Potassium [Cozaar 50 mg (*)] 50 mg PO HS 08/31/16 [Last Taken 10/07/16] Pantoprazole Sodium [Protonix 40mg (*)] 40 mg PO DAILY 08/31/16 [Last Taken ] Potassium Cl [Klor-Con 20 meq (*)] 20 meq PO DAILY 08/31/16 [Last Taken 10/07/16 ] guaiFENesin [Mucinex 600 MG (*)] 1,200 mg PO DAILY PRN 08/31/16 [Last Taken ] Acetaminophen [Tylenol 325mg (*)] 650 mg PO Q4HRS PRN #0 tab 09/02/16 [Last Taken 10/07/16] Ertapenem [INVanz] 1 gm IV DAILY #0 vial 09/02/16 [Last Taken 10/07/16] Hydrocodone/APAP 5/325 [Caro 5/325 (*)] 1 tab PO Q4HRS PRN #20 tab 09/02/16 [ Last Taken 10/07/16] Vancomycin 1 gm/Dextrose [Vancomycin 1 gm (Premix)] 1 gm IV Q24H 10/10/16 [Last Taken 10/07/16] Usp Antibiotics: Vancomycin 1 g IV q24; ertapenem 1 g IV q24 Microfilm Machine Operator Antibiotic Stop Date: 10/25/16 Discharge Medications: Refer to the Discharge Home Medication list for PRN reason. PICC Care - Routine: Yes - Labs/Radiology CBC Date: 10/17/16 CMP Date: 10/17/16 Creatinine Date: 10/20/16 Vanco Trough Date and Time: 10/17/16 and 10/20/16 Call or Fax Lab and Imaging Results to: Dr. Jamison [phone] - Follow Up Care Current Providers and Referrals: Nadege Galvez MD [Primary Care Provider] - As per Instructions
--- NOTE | 2016-10-16 10:29 | NEUSURGPN ---
Assessment/Plan: 71 y/o male with lumbar stenosis and lumbar compression fractures (L4 and L5). Now POD #4 L3-L5 laminectomy, L4 and L5 kyphoplasty -PTOT -Optimize pain management -SIlver dressing: continue for 7 days post op and then change tp dressing daily dressing changes. -Discharge once cleared by medicine and bed available -Please notify SN with any change in neuro/motor exam Subjective: pain tolerable with medications, denies any new leg pain, numbness or tingling Objective: NAD A&Ox3 MAEx4. Incisional dressing c/d/i - Physician Discussed Patient with : Volodymyr Neurosurgery Physical Exam - Vitals, I&O, Labs I and O 10/15/16 10/16/16 10/17/16 05:59 05:59 05:59 Intake Total 850 100 Output Total 800 1475 Balance 50 -1375 Intake: Oral (ml) 850 IV Infused (ml) 100 Ertapenem 1 gm In Ns 100 100 ml @ 200 mls/hr IV DAILY21 [facility] Rx#: [id number] Output: Urine (ml) 800 1475 Urinal 800 1275 Bedside Commode 200 Other: Number of Voids Urinal 2 1 Bedside Commode 1 1 Number of Stools Incontinence 1 1 Bedside Commode 1 1 Vital Signs Temp Pulse Resp BP Pulse Ox 36.1 C 87 16 146/82 H 93 10/15/16 23:06 10/15/16 23:06 10/15/16 23:06 10/15/16 23:06 10/15/16 23:06 Laboratory Results 10/12/16 05:40 10/14/16 04:40 ICD10 Worksheet Patient Problems: Problems Problem Status Diagnosed Closed compression fracture of L1 lumbar vertebral body Acute Compression fracture of L3 lumbar vertebra Acute Compression fracture of L4 lumbar vertebra Acute Cellulitis of left foot Acute MRSA (methicillin resistant Staphylococcus aureus) Acute 09/14/16
--- NOTE | 2016-10-16 14:19 | PDIAF ---
- Diagnosis Diagnosis: Left foot osteomyelitis Code Status: Full Code - Medication Management Discharge Medications: Medications to Continue on Transfer Prednisone 10 mg PO DAILY 04/12/11 [Last Taken 10/07/16] SIMVASTATIN [Zocor] 40 mg PO HS 04/12/11 [Last Taken 10/07/16] Zafirlukast [Accolate 20 MG] 20 mg PO BID@1000,2000 04/12/11 [Last Taken ] metFORMIN HCL [Glucophage 500 mg (*)] 1,000 mg PO BID 04/12/11 [Last Taken 10/07] Aspirin [Aspirin 81mg (*)] 81 mg PO HS 04/09/15 [Last Taken 10/07/16] Cholecalciferol (Vitamin D3) [Vitamin D3] 4,000 unit PO HS 04/09/15 [Last Taken 10/07/16] Fluticasone/Salmeter 500/50Mcg [Advair 500/50 (*)] 1 puffs IH BID 04/09/15 [ Last Taken 10/07/16] Albuterol [Proventil Inhaler HFA (*)] 1 - 2 puffs IH DAILY PRN 08/31/16 [Last Taken 10/07/16] Allopurinol [Allopurinol 100 MG (*)] 100 mg PO DAILY 08/31/16 [Last Taken ] Ferrous Sulfate [Ferrous Sulf 325 MG (*)] 325 mg PO DAILY 08/31/16 [Last Taken 10/07/16] Furosemide [Lasix 40 MG (*)] 40 mg PO DAILY 08/31/16 [Last Taken 10/07/16] Ipratropium/Albuterol [Duoneb (*)] 3 ml IH QID 08/31/16 [Last Taken 10/07/16] Losartan Potassium [Cozaar 50 mg (*)] 50 mg PO HS 08/31/16 [Last Taken 10/07/16] Pantoprazole Sodium [Protonix 40mg (*)] 40 mg PO DAILY 08/31/16 [Last Taken ] Potassium Cl [Klor-Con 20 meq (*)] 20 meq PO DAILY 08/31/16 [Last Taken 10/07/16 ] guaiFENesin [Mucinex 600 MG (*)] 1,200 mg PO DAILY PRN 08/31/16 [Last Taken ] Acetaminophen [Tylenol 325mg (*)] 650 mg PO Q4HRS PRN #0 tab 09/02/16 [Last Taken 10/07/16] Ertapenem [INVanz] 1 gm IV DAILY #0 vial 09/02/16 [Last Taken 10/07/16] Hydrocodone/APAP 5/325 [Mona 5/325 (*)] 1 tab PO Q4HRS PRN #20 tab 09/02/16 [ Last Taken 10/07/16] Vancomycin 1 gm/Dextrose [Vancomycin (RX)] 1 gm IV Q24H 10/10/16 [Last Taken ] Acetaminophen [Tylenol 325mg (*)] 325 - 650 mg PO Q4HRS PRN #0 tab 10/16/16 [ Last Taken Unknown] Dextrose 50% Syringe 25 gm IVP PRN PRN #0 syr 10/16/16 [Last Taken Unknown] Diazepam [Valium 5 MG (*)] 2.5 - 5 mg PO QID PRN #0 tab 10/16/16 [Last Taken Unknown] Ertapenem [INVanz] 1 gm IV DAILY21 #0 vial 10/16/16 [Last Taken Unknown] Famotidine [Pepcid 20 MG (*)] 20 mg PO BID #0 tab 10/16/16 [Last Taken Unknown] Nystatin Powder [Mycostatin Powder] 1 antonio TP TID #0 powder 10/16/16 [Last Taken Unknown] Ondansetron Odt [Zofran Odt 4 mg (*)] 4 - 8 mg PO Q6HRS PRN #0 tab 10/16/16 [ Last Taken Unknown] Sennosides/Docusate Sodium [Senokot-S] 1 - 2 tab PO BID #0 tab 10/16/16 [Last Taken Unknown] Vancomycin HCl/Normal Saline [Vancomycin 1 gm (Premix)] 250 ml IV Q24H #0 bag [Last Taken Unknown] oxyCODONE/APAP 5/325 [Percocet 5/325 (*)] 1 - 2 tab PO Q4HRS PRN #0 tab [Last Taken Unknown] Snf Antibiotics: Vancomycin 1 g IV q24; ertapenem 1 g IV q24 Effervescent Salts Compounder Antibiotic Stop Date: 10/25/16 Discharge Medications: Refer to the Discharge Home Medication list for PRN reason. PICC Care - Routine: Yes - Orders Services needed: Certified Mine Production Engineer, Physical Therapy, Occupational Therapy - Labs/Radiology CBC Date: 10/17/16 CMP Date: 10/17/16 Creatinine Date: 10/20/16 Vanco Trough Date and Time: 10/17/16 and 10/20/16 Call or Fax Lab and Imaging Results to: Dr. Jamison [phone] - Follow Up Care Current Providers and Referrals: Nadege Galvez MD [Primary Care Provider] - As per Instructions
[2016-10-16] MEDS: MONTELUKAST SODIUM 10 MG TAB PO SCH (18:30)
[2016-10-16] MEDS: ATORVASTATIN CALCIUM 20 MG TAB PO SCH (20:35)
[2016-10-16] MEDS: CHOLECALCIFEROL VIT D3 2,000 UNITS TAB/CAP PO SCH (20:35)
[2016-10-16] MEDS: LOSARTAN POTASSIUM 50 MG TAB PO SCH (20:36)
[2016-10-16] MEDS: ERTAPENEM 1 GM in NS 100 ML IV SCH (20:40)
[2016-10-17] MEDS: IPRATROPIUM/ALBUTEROL 3 ML DEYVIAL IH SCH (06:09)
[2016-10-17 07:32] VITALS: TEMP 97.8
[2016-10-17 08:30] VITALS: BP 120/64
[2016-10-17] MEDS: FLUTICASONE/SALMETER 500/50MCG DISKUS IH SCH (09:27)
[2016-10-17] MEDS ORDERED: VANCOMYCIN 1 GM in NS 250 ML IV SCH (09:30)
[2016-10-17 09:34] VITALS: PULSE 72; RESP 14
[2016-10-17] MEDS: FAMOTIDINE 20 MG TAB PO SCH (09:57)
[2016-10-17] MEDS: FUROSEMIDE 40 MG TAB PO SCH (09:57)
[2016-10-17] MEDS: ALLOPURINOL 100 MG TAB PO SCH (09:57)
[2016-10-17] MEDS: ENOXAPARIN 40 MG/0.4 ML SYR SC SCH (09:57)
[2016-10-17] MEDS: predniSONE 10 MG TAB PO SCH (09:57)
[2016-10-17] MEDS: SENNOSIDES/DOCUSATE SODIUM TAB PO SCH (09:57)
[2016-10-17] MEDS: PANTOPRAZOLE SODIUM 40 MG TAB PO SCH (09:58)
[2016-10-17] MEDS: FERROUS SULFATE 325 MG TAB PO SCH (09:58)
[2016-10-17] MEDS: NYSTATIN POWDER 15 GM BTL TP SCH (10:01)
[2016-10-17] MEDS: HYDROCODONE/APAP 5/325 TAB PO PRN (11:05)
[2016-10-17 11:56] VITALS: O2SAT 88
--- NOTE | 2016-10-17 13:46 | HOSPPROG ---
Hospitalist Progress Note Assessment/Plan: Patient is a 71-year-old male presented to the emergency room with worsening low back pain with right lower extremity weakness. This is my first encounter with this patient. Chart reviewed. #. Lumbar back pain after sustaining a fall * S/p L3-L4 decompressive laminectomy, L4 & L5 kyphoplasty #. chronic hypoxemic respiratory failure * at his baseline on 4 L #. anemia * hemoglobin /hematocrit are stable #. chronic COPD / no exacerbation * on chronic steroids / low-dose prednisone #. Prediabetes * hold metformin * patient doesn't want glucoses checked and doesn't want insulin * this has been dc #. gait instability * Physical therapy and occupational therapy are working with him #. left diabetic foot ulcer/osteomyelitis * wound VAC replaced today (appreciate skip pitman) * on vancomycin and ertapenem * wound Care following / will have dressing changes every other day #. HTN * cont home meds * a bit elevated this morning #. bradycardia * asymptomatic #. Gout * allopurinol #Atrial fibrillation/ history of this * he is in sinus rhythm * Restart ASA after surgery when ok by NSGY #DVT ppx: low-molecular weight heparin # plan. patient is willing to go to SNF/Dc per neurosurgery/ patient will need close f/u with Dr Jamison/ continue his antibiotics as ordered here Subjective: No specific issues. Ready for discharge. Objective: Vital Signs Temp Pulse Resp BP Pulse Ox 36.6 C 72 14 120/64 88 L 10/17/16 07:30 10/17/16 09:30 10/17/16 09:30 10/17/16 08:28 10/17/16 11:30 Laboratory Results 10/12/16 05:40 10/14/16 04:40 10/16/16 10/17/16 10/18/16 05:59 05:59 05:59 Intake Total 100 750 Output Total 1475 250 Balance -1375 750 -250 PT 14.4 SEC (12.0-15.0) 10/09/16 04:50 INR 1.13 (0.83-1.16) 10/09/16 04:50 - Physical Exam Constitutional: no apparent distress, appears nourished, not in pain Eyes: PERRL, anicteric sclera, EOMI Ears, Nose, Mouth, Throat: moist mucous membranes, hearing normal, ears appear normal Cardiovascular: No JVD, No tachycardia, No edema Respiratory: no respiratory distress, no rales or rhonchi, reduced air movement Gastrointestinal: No tenderness, No ascites, No guarding Skin: warm, normal color, No pressure ulcer Musculoskeletal: no joint effusions, generalized weakness, No normal joint ROM Neurologic: AAOx3 Psychiatric: interacting appropriately, not anxious, not encephalopathic ICD10 Worksheet Patient Problems: Problems Problem Status Diagnosed Cellulitis of left foot Acute Closed compression fracture of L1 lumbar vertebral body Acute Compression fracture of L3 lumbar vertebra Acute Compression fracture of L4 lumbar vertebra Acute MRSA (methicillin resistant Staphylococcus aureus) Acute 09/14/16
== END 2016-10-17 11:48 | DRG 519 ==
LOC: F3N 16:29
PROVIDERS: ADMIT Neurological Surgery; ATTEND Neurological Surgery
PROC: 0QS00ZZ Reposition Lumbar Vertebra, Open Approach (ICD-10-PCS; principal; 2016-10-11 15:45)
PROC: 0QU00JZ Supplement Lumbar Vertebra with Synthetic Substitute, Open Approach (ICD-10-PCS; principal; 2016-10-11 15:45)
PROC: 00NY0ZZ Release Lumbar Spinal Cord, Open Approach (ICD-10-PCS; principal; 2016-10-11 15:45)
PROC: 2W1TX6Z Compression of Left Foot using Pressure Dressing (ICD-10-PCS; 2016-10-12)
DX: M80.08XA Age-related osteoporosis with current pathological fracture, vertebra(e), initial encounter for fracture (principal); M48.06 Spinal stenosis, lumbar region; E11.69 Type 2 diabetes mellitus with other specified complication; M86.9 Osteomyelitis, unspecified; B95.62 Methicillin resistant Staphylococcus aureus infection as the cause of diseases classified elsewhere; E11.621 Type 2 diabetes mellitus with foot ulcer; L97.429 Non-pressure chronic ulcer of left heel and midfoot with unspecified severity; J44.9 Chronic obstructive pulmonary disease, unspecified; I10 Essential (primary) hypertension; J96.11 Chronic respiratory failure with hypoxia; E78.5 Hyperlipidemia, unspecified; I48.91 Unspecified atrial fibrillation; Z99.81 Dependence on supplemental oxygen
CPT/HCPCS: 96374; 97110-GP; 97116-GP; 97161-GP; 97165-GO; 97530-GO; 97530-GP; 97535-GO; C1713; C1894; G8978-GP-CJ; G8979-GP-CI; G8987-GO-CJ; G8987-GO-CK; G8988-GO-CI; G8989-GO-CJ; J0690; J1100; J1170; J1335; J1650; J1815; J2001; J2250; J2405; J2704; J3010; J3370; Q9967

== ENCOUNTER 2018-07-03 10:09 | Day surgery (SDC) | payer OTHER ==
[2018-07-03] MEDS ORDERED: LR 1,000 ML IV ONE (10:30)
[2018-07-03] MEDS ORDERED: ceFAZolin 2 GM/DEXTROSE 100 ML IV ONE (10:30)
[2018-07-03] MEDS ORDERED: LIDOCAINE 1% 2 ML INJ ID PRN (10:30)
--- NOTE | 2018-07-03 10:59 | PDHPUP ---
History & Physical Update H&P update statement: This history and physical update is based on an assessment of the patient which was completed after admission or registration (within 24 hours), but prior to the surgery/procedure. H&P update: H&P reviewed & patient examined, no change in patient's condition since H&P completed
[2018-07-03] MEDS ORDERED: BUPIVACAINE 0.25% 30 ML SDV ONE (11:29)
[2018-07-03] MEDS ORDERED: EPINEPHrine 1 MG/ML INJ ONE (11:29)
[2018-07-03] MEDS ORDERED: BACITRACIN 50,000 UNITS/10 ML SYR IRR ONE (11:30)
[2018-07-03] MEDS ORDERED: POLYMYXIN B SULFATE 500,000 UNIT/10 ML SYR IRR ONE (11:30)
[2018-07-03] MEDS ORDERED: MIDAZOLAM 2 MG/2 ML VIAL IVP ONE (11:39)
--- NOTE | 2018-07-03 11:39 | PDANEPAE ---
ANE History of Present Illness here for toe amputation ANE Past Medical History - Cardiovascular History Hx Hypertension: Yes Hx Arrhythmias: Yes Cardiovascular History Comment: AFIB - ONE EPISODE IN PAST - NO MEDS. AORTIC ANEURYSM - Pulmonary History Hx COPD: Yes Hx Oxygen in Use at Home: Yes Hx Sleep Apnea: Yes Sleep Apnea Screening Result - Last Documented: Positive Pulmonary History Comment: SLEEP APNEA W/BIPAP - Neurologic History Hx Cerebrovascular Accident: Yes Hx Seizures: No Hx Dementia: No Neurologic History Comment: TIA 10 YRS AGO - Endocrine History Hx Diabetes: Yes Endocrine History Comment: PRE DIABETES - Renal History Hx Renal Disorders: No - Liver History Hx Hepatic Disorders: No - Neurological & Psychiatric Hx Hx Neurological and Psychiatric Disorders: No - Cancer History Hx Cancer: No - Congenital Disorder History Hx Congenital Disorders: No - GI History Hx Gastrointestinal Disorders: Yes Gastrointestinal History Comment: Denies reflux, states takes pantoptazole for aortic aneurysm - Other Health History Other Health History: GOUT. upper, lower dentures. wears glasses - Chronic Pain History Chronic Pain: Yes (CHRONIC BACK PAIN) - Surgical History Prior Surgeries: bilat foot ulcer debridement 04/2018. BULGING LUMBAR DISC/ REMOVAL, NASAL SURGERY, VASECTOMY. FOOT SURG L ANE Review of Systems Review of Systems: - Exercise capacity METS (RN): 2 METS ANE Patient History - Allergies Allergies/Adverse Reactions: metoprolol Allergy (Verified 07/01/18 14:20) scaling skin on arms - Home Medications Home Medications: Prednisone DAILY 04/12/11 [Last Taken 1 Day Ago ~07/02/18] SIMVASTATIN [Zocor] 04/12/11 [Last Taken 1 Day Ago ~07/02/18] Zafirlukast [Accolate 20 MG] BID@1000,2000 04/12/11 [Last Taken 07/03/18] metFORMIN HCL [Glucophage 500 mg (*)] BID 04/12/11 [Last Taken 1 Day Ago ~] Cholecalciferol (Vitamin D3) [Vitamin D3] 04/09/15 [Last Taken 10/07/16] Fluticasone/Salmeter 500/50Mcg [Advair 500/50 (*)] BID 04/09/15 [Last Taken 1 Day Ago ~07/02/18] Albuterol [Proventil Inhaler HFA (*)] PRN 08/31/16 [Last Taken 10/07/16] Allopurinol [Allopurinol 100 MG (*)] DAILY 08/31/16 [Last Taken 1 Day Ago ~07/02] Ferrous Sulfate [Ferrous Sulf 325 MG (*)] DAILY 08/31/16 [Last Taken 10/07/16] Furosemide [Lasix 40 MG (*)] DAILY 08/31/16 [Last Taken 1 Day Ago ~07/02/18] Ipratropium/Albuterol [Duoneb (*)] QID 08/31/16 [Last Taken 07/03/18] Losartan Potassium [Cozaar 50 mg (*)] HS 08/31/16 [Last Taken 07/03/18] Pantoprazole Sodium [Protonix 40mg (*)] DAILY 08/31/16 [Last Taken 07/03/18] Hydrocodone/APAP 5/325 [Saxis 5/325 (*)] Q4HRS PRN 07/01/18 [Last Taken 07/03/18 ] Magnesium 07/01/18 [Last Taken Unknown] Vitamin B-12 07/01/18 [Last Taken Unknown] - NPO status NPO Since - Liquids (Date): 07/03/18 NPO Since - Liquids (Time): 09:00 NPO Since - Solids (Date): 07/02/18 NPO Since - Solids (Time): 18:00 - Smoking Hx Smoking Status: Former smoker - Family Anes Hx Family Hx Anesthesia Complications: NONE ANE Labs/Vital Signs - Labs Result Diagrams: 07/03/18 11:10 - Vital Signs Blood Pressure: 137/70 Heart Rate: 65 Respiratory Rate: 18 O2 Sat (%): 99 Height: 175.26 cm Weight: 92.986 kg
[2018-07-03] MEDS ORDERED: ALBUTEROL 3 ML DEYVIAL IH PRN (11:40)
[2018-07-03] MEDS ORDERED: HYDROCODONE/APAP 5/325 TAB PO PRN (11:40)
[2018-07-03] MEDS ORDERED: NALOXONE HCL 0.4 MG/ML INJ IVP PRN (11:40)
[2018-07-03] MEDS ORDERED: fentaNYL 100 MCG/2 ML INJ IVP PRN (11:40)
[2018-07-03] MEDS ORDERED: DEXAMETHASONE 4 MG/ML VIAL IVP PRN (11:40)
[2018-07-03] MEDS ORDERED: ACETAMINOPHEN 500 MG TAB PO PRN (11:40)
[2018-07-03] MEDS ORDERED: oxyCODONE IR 5 MG TAB PO PRN (11:40)
[2018-07-03] MEDS ORDERED: HYDROmorphONE/DILAUDID 2 MG/ML INJ IVP PRN (11:40)
[2018-07-03] MEDS ORDERED: LABETALOL HCL 5 MG/ML 20 ML MDV IVP PRN (11:40)
[2018-07-03] MEDS ORDERED: ONDANSETRON 4 MG/2 ML VIAL IVP PRN (11:40)
[2018-07-03] MEDS ORDERED: fentaNYL 100 MCG/2 ML INJ ONE (11:50)
[2018-07-03] MEDS ORDERED: PROPOFOL/EMULSION 500 MG/50 ML BOTTLE IV ONE (11:50)
--- NOTE | 2018-07-03 13:16 | POSTOPPROG ---
Post Op Note Date of Operation: 07/03/18 Surgeon: Ace Medellin Didactic Instructor: none Anesthesiologist: Andrey Anesthesia: IV Sedation Pre-op Diagnosis: osteomyelitis right 5th Post-op Diagnosis: same Indication: bone infection Procedure: amputation right 5th ray Findings: none Inf/Abcess present in the surg proc area at time of surgery?: Yes Depth: Deep Incisional (Fascial) EBL: Minimal Total fluids administered: 20cc .25% marcaine plain preop Complications: none Drains: Other (none)
--- NOTE | 2018-07-03 13:22 | POSTANESTH ---
Post Anesthetic Evaluation Cardiovascular Status: Normal, Stable Respiratory Status: Normal, Stable Level of Consciousness/Mental Status: Mildly Sleepy, Arousable Pain Control: Adequate, Prn Tx Ordered Nausea/Vomiting Control: Adequate, Prn Tx Ordered Complications Possibly Related to Anesthesia: None Noted
[2018-07-03 14:20] VITALS: BP 112/58
--- NOTE | 2018-07-04 07:01 | GOP ---
DATE OF OPERATION: 07/03/2018 SURGEON: Ace Medellin DPM SHAPING MACHINE OPERATOR: None. ANESTHESIA: Local with MAC ANESTHESIOLOGIST: Dr. Balderas. PREOPERATIVE DIAGNOSIS: 1. Ulceration, right 5th metatarsal head. 2. Osteomyelitis, right 5th metatarsal head and proximal phalanx. POSTOPERATIVE DIAGNOSIS: 1. Ulceration, right 5th metatarsal head. 2. Osteomyelitis, right 5th metatarsal head and proximal phalanx. PROCEDURE PERFORMED: 1. Partial right 5th ray amputation including 5th digit. 2. Rotational flap for ulceration closure right 5th. FINDINGS: SPECIMENS: Bone specimen sent for culture and sensitivity and pathological evaluation. ESTIMATED BLOOD LOSS: Less than 20 cc. DESCRIPTION OF PROCEDURE: Patient presented to [facility]. He was cleared for the int ended procedure. Patient was taken to the operating room and placed in stable supine position. IV s edation was started per the Anesthesia Department. Foot was anesthetized in infiltrative nerve block fashion. Foot was prepped, scrubbed and draped in the usual sterile fashion. Following exsanguinat ion by elevation Esmarch bandage, pneumatic ankle tourniquet was inflated to 225 mmHg. At this time, attention was directed to the lateral aspect of the right 5th ray where the obvious ulceration was n oted. At this time the ulceration was probing directly down to bone, and it was decided that amputat ion and debridement would be necessary. At this time, a linear incision was started proximal on the 5th metatarsal and carried distal toward the ulceration. Two converging semi-elliptical incisions we re made around the ulceration and then carried obliquely over the base of the proximal phalanx of the 5th digit. A semi circular incision was then made on the dorsal aspect of this to act as a rotation al flap for the ulcer closure at a later time. The incisions were carried deep utilizing sharp, blun t dissection, making sure that all neurovascular structures were identified and retracted at this guerita e. All superficial bleeders were cauterized. The incision was carried down to the level of the base of the proximal phalanx. At this time, the capsulotomy was performed and the 5th digit was removed. There was noted to be evidence of osteomyelitic changes at the base of the proximal phalanx at this time. Upon completion of this, attention was redirected to the 5th metatarsal where further erosive changes were noted. The sagittal saw was then utilized to resect the 5th metatarsal at a slight ang ulation from proximal lateral to distal medial and from dorsal distal to plantar proximal. Upon comp letion of this, the head of the 5th metatarsal was then removed and sent in for culture and sensitivi ty. I also wanted to get pathological findings, so another cut through the metatarsal was performed just proximal to this by approximately 5 mm. This was performed in the same angulated fashion and th is was sent in for evaluation for any evidence of further osteomyelitis. The bone appeared to look h ealthy at this time and the area was then cleaned with sterile saline and antibiotic rinse in a pulse lavage fashion, 3 L of sterile saline were utilized. Upon completion of this, the tourniquet was re leased. No remaining devitalized tissue was appreciable. Deep closure was then obtained with 5-0 Nain ryl followed by skin closure with 3-0 nylon and 0 Mersilene. The rotational flap had been moved into place to close the ulceration, so no open sites were appreciable at this time. The area was cleaned a final time with sterile saline before the area was dressed with Betadine-soaked Adaptics, 4x4s, Kl ing, and Coban. The patient was then taken to the recovery room, vital signs stable and vascular sup ply intact to the remaining 4 digits. HEMOSTASIS: PAT at 225 mmHg by 44 minutes. MATERIALS: None. INJECTABLES: 20 cc 0.25% Marcaine plain preoperatively. COMPLICATIONS: None. /[id number]/MODL
== END 2018-07-03 14:15 | disposition home or self-care (01) ==
LOC: FSGY 10:09
PROVIDERS: ATTEND Podiatrist Primary Podiatric Medicine
PROC: 0Y6X0Z0 Detachment at Right 5th Toe, Complete, Open Approach (ICD-10-PCS; principal; 2018-07-03 11:45)
PROC: 0Y6M0ZF Detachment at Right Foot, Partial 5th Ray, Open Approach (ICD-10-PCS; principal; 2018-07-03 11:45)
PROC: 0HXMXZZ Transfer Right Foot Skin, External Approach (ICD-10-PCS; principal; 2018-07-03 11:45)
DX: E11.621 Type 2 diabetes mellitus with foot ulcer (principal); L97.906 Non-pressure chronic ulcer of unspecified part of unspecified lower leg with bone involvement without evidence of necrosis; M86.9 Osteomyelitis, unspecified; I10 Essential (primary) hypertension; J44.9 Chronic obstructive pulmonary disease, unspecified; G47.30 Sleep apnea, unspecified; M10.9 Gout, unspecified
CPT/HCPCS: J0171; J0690; J2250; J2704; J3010

== ENCOUNTER → 2018-09-02 | Outpatient (CLI) | payer OTHER | LOC: BHCLAF 13:30 | PROVIDERS: ATTEND Internal Medicine Cardiovascular Disease | DX: I48.91 Unspecified atrial fibrillation (principal) | CPT/HCPCS: 93005-PO ==

== ENCOUNTER 2018-09-18 06:47 | Day surgery (SDC) | payer OTHER ==
[2018-09-18] MEDS ORDERED: ceFAZolin 2 GM/DEXTROSE 100 ML IV ONE (07:06)
[2018-09-18] MEDS ORDERED: LR 1,000 ML IV ONE (07:07)
--- NOTE | 2018-09-18 07:33 | PDANEPAE ---
ANE History of Present Illness Right foot wound, here for I&D ANE Past Medical History - Cardiovascular History Hx Hypertension: Yes Hx Arrhythmias: Yes Hx Chest Pain: No Hx Coronary Artery / Peripheral Vascular Disease: No Hx CHF / Valvular Disease: Yes Cardiovascular History Comment: AFIB - ONE EPISODE IN PAST - NO MEDS. AORTIC ANEURYSM. [address] chf - Pulmonary History Hx COPD: Yes Hx Asthma/Reactive Airway Disease: No Hx Oxygen in Use at Home: Yes O2 in Use at Home (L/minute): 4.L 24/ Hx Sleep Apnea: Yes Sleep Apnea Screening Result - Last Documented: Positive Pulmonary History Comment: SLEEP APNEA W/BIPAP - Neurologic History Hx Cerebrovascular Accident: Yes Hx Seizures: No Hx Dementia: No Neurologic History Comment: TIA 10 YRS AGO - Endocrine History Hx Diabetes: No Endocrine History Comment: PRE DIABETES - Renal History Hx Renal Disorders: Yes Renal History Comment: RENAL INSUFFICIENCY - Liver History Hx Hepatic Disorders: No - Neurological & Psychiatric Hx Hx Neurological and Psychiatric Disorders: No - Cancer History Hx Cancer: No - Congenital Disorder History Hx Congenital Disorders: No - GI History Hx Gastrointestinal Disorders: Yes Gastrointestinal History Comment: Denies reflux, states takes pantoptazole for aortic aneurysm - Other Health History Other Health History: GOUT. upper, lower dentures. wears glasses - Chronic Pain History Chronic Pain: Yes (CHRONIC BACK PAIN) - Surgical History Prior Surgeries: bilat foot ulcer debridement 04/2018. BULGING LUMBAR DISC/ REMOVAL, NASAL SURGERY, VASECTOMY. FOOT SURG L ANE Review of Systems Review of Systems: - Exercise capacity METS (RN): 1 METS ANE Patient History - Allergies Allergies/Adverse Reactions: metoprolol Allergy (Verified 07/01/18 14:20) scaling skin on arms - Home Medications Home Medications: Prednisone 04/12/11 [Last Taken 1 Day Ago ~07/02/18] SIMVASTATIN [Zocor] 04/12/11 [Last Taken 1 Day Ago ~07/02/18] Zafirlukast [Accolate 20 MG] 04/12/11 [Last Taken 07/03/18] Cholecalciferol (Vitamin D3) [Vitamin D3] 04/09/15 [Last Taken 10/07/16] Fluticasone/Salmeter 500/50Mcg [Advair 500/50 (*)] 04/09/15 [Last Taken 1 Day Ago ~07/02/18] Albuterol [Proventil Inhaler HFA (*)] 08/31/16 [Last Taken 10/07/16] Allopurinol [Allopurinol 100 MG (*)] 08/31/16 [Last Taken 1 Day Ago ~07/02/18] Ferrous Sulfate [Ferrous Sulf 325 MG (*)] 08/31/16 [Last Taken 10/07/16] Furosemide [Lasix 40 MG (*)] 08/31/16 [Last Taken 1 Day Ago ~07/02/18] Ipratropium/Albuterol [Duoneb (*)] 08/31/16 [Last Taken 07/03/18] Losartan Potassium [Cozaar 50 mg (*)] 08/31/16 [Last Taken 07/03/18] Pantoprazole Sodium [Protonix 40mg (*)] 08/31/16 [Last Taken 07/03/18] Hydrocodone/APAP 5/325 [[place] 5/325 (*)] 07/01/18 [Last Taken 07/03/18] Magnesium 07/01/18 [Last Taken Unknown] Vitamin B-12 07/01/18 [Last Taken Unknown] - NPO status NPO Since - Liquids (Date): 09/17/18 NPO Since - Liquids (Time): 20:30 NPO Since - Solids (Date): 09/17/18 NPO Since - Solids (Time): 18:30 - Smoking Hx Smoking Status: Former smoker - Family Anes Hx Family Hx Anesthesia Complications: NONE ANE Labs/Vital Signs - Vital Signs Height: 175.26 cm Weight: 89.811 kg ANE Physical Exam - Airway Neck exam: decreased ROM, increased neck circumference Mallampati Score: Class 3 Mouth exam: dentures - Pulmonary Pulmonary: no respiratory distress, no rales or rhonchi - Cardiovascular Cardiovascular: regular rate and rhythym, no murmur, rub, or gallop - ASA Status ASA Status: III ANE Anesthesia Plan Anesthesia Plan: GA with mask Regional Anesthesia: single shot NB Total IV Anesthesia: Yes
[2018-09-18] MEDS ORDERED: LIDOCAINE 2% 5 ML SDV ONE (08:02)
[2018-09-18] MEDS ORDERED: fentaNYL 100 MCG/2 ML INJ ONE (08:02)
[2018-09-18] MEDS ORDERED: PROPOFOL/EMULSION 500 MG/50 ML BOTTLE IV ONE (08:03)
[2018-09-18] MEDS ORDERED: PHENYLEPHRINE HCL 100 MCG/ML SYR ONE (08:05)
[2018-09-18] MEDS ORDERED: BUPIVACAINE/EPI 0.25% 30 ML SDV ONE (08:14)
[2018-09-18] MEDS ORDERED: BUPIVACAINE 0.25% 10 ML SDV ONE (08:15)
[2018-09-18] MEDS ORDERED: POLYMYXIN B SULFATE 500,000 UNIT/10 ML SYR IRR ONE (08:15)
[2018-09-18] MEDS ORDERED: BACITRACIN 50,000 UNITS/10 ML SYR IRR ONE (08:15)
--- NOTE | 2018-09-18 09:45 | POSTOPPROG ---
Post Op Note Date of Operation: 09/18/18 Surgeon: Ace Medellin Compliance Advisor: none Anesthesiologist: Susy Anesthesia: IV Sedation Pre-op Diagnosis: osteo right th metatarsal Post-op Diagnosis: same Indication: infection Procedure: partial right 5th metatarsal amputation with grafting Findings: osteomyelitis Inf/Abcess present in the surg proc area at time of surgery?: Yes Depth: Deep Incisional (Fascial) EBL: Minimal Total fluids administered: 20cc .25% marcaine plain Complications: none Drains: Other (none)
[2018-09-18] MEDS ORDERED: ALBUTEROL 3 ML DEYVIAL IH PRN (09:53)
[2018-09-18] MEDS ORDERED: fentaNYL 100 MCG/2 ML INJ IVP PRN (09:53)
[2018-09-18] MEDS ORDERED: NALOXONE HCL 0.4 MG/ML INJ IVP PRN (09:53)
[2018-09-18] MEDS ORDERED: MEPERIDINE 25 MG/0.5 ML AMP IVP PRN (09:53)
[2018-09-18] MEDS ORDERED: HYDROmorphONE/DILAUDID 2 MG/ML INJ IVP PRN (09:53)
[2018-09-18] MEDS ORDERED: ACETAMINOPHEN 500 MG TAB PO PRN (09:53)
[2018-09-18] MEDS ORDERED: oxyCODONE IR 5 MG TAB PO PRN (09:53)
[2018-09-18] MEDS ORDERED: ONDANSETRON 4 MG/2 ML VIAL IVP PRN (09:53)
--- NOTE | 2018-09-18 09:54 | POSTANESTH ---
Post Anesthetic Evaluation Cardiovascular Status: Normal, Stable, Similar to Pre-Op Cond Respiratory Status: Normal, Stable, Similar to Pre-op Cond. Level of Consciousness/Mental Status: Can Participate in Eval, Alert and Oriented Pain Control: Adequate, Prn Tx Ordered Nausea/Vomiting Control: Adequate, Prn Tx Ordered Complications Possibly Related to Anesthesia: None Noted
[2018-09-18 10:32] VITALS: BP 139/61
--- NOTE | 2018-09-18 18:31 | GOP ---
DATE OF OPERATION: 09/18/2018 SURGEON: Ace Medellin DPM ALTERATION WORKROOM SUPERVISOR: None. ANESTHESIA: Local with MAC. ANESTHESIOLOGIST: Dr. Jain. PREOPERATIVE DIAGNOSIS: 1. Ulceration, right lateral foot. 2. Osteomyelitis, right 5th metatarsal. POSTOPERATIVE DIAGNOSIS: 1. Ulceration, right lateral foot. 2. Osteomyelitis, right 5th metatarsal. PROCEDURE PERFORMED: 1. Debridement ulceration right lateral foot including excision of 5th metatarsal. 2. Collagen grafting right foot. FINDINGS: SPECIMENS: Bone specimen sent for culture and sensitivity and crystals sent for analysis. ESTIMATED BLOOD LOSS: Minimal. DESCRIPTION OF PROCEDURE: The patient presented to [facility], was cleared for the int ended procedure. Patient was taken to the operating room and placed on the table in supine position. IV sedation was started per the anesthesia department. Foot was anesthetized in an infiltrative ne rve block fashion. Foot was prepped, scrubbed and draped in usual sterile fashion. Following exsang uination by elevation of Esmarch bandage, pneumatic ankle tourniquet was inflated to 250 mmHg. At th is time, attention was directed to the lateral aspect of the right foot where the obvious ulcer was i dentified. The bone was visible at this time. It was decided that this would need to be excised. T he ulceration was incised proximally into healthy tissue. The dissection was carried deep, utilizing sharp and blunt dissection, making sure that all neurovascular structures were identified and retrac rob. At this time all superficial bleeders were cauterized. The incision was carried down to the le gabe of the base of the 5th metatarsal. The 5th metatarsal was noted to be substantially soft and ero ded. At this time, it was decided that the remaining 5th metatarsal would be excised and removed. I t was freed up at the metatarsal cuboid joint and removed and sent in for pathological evaluation. A t this time considerable white crystalline deposits in the area were appreciable. This was most cons istent with gout but some of these crystals were taken and sent in for crystal analysis. Upon comple tion of this, the Versajet was then utilized to remove any devitalized tissue from the site. The are a was then rinsed with 3 L of sterile saline and antibiotic rinse in a pulse lavage fashion. Upon co mpletion of this, the deep void from the excision of the 5th metatarsal was closed utilizing 3-0 Vicr yl. It was decided that the ulcer itself would be grafted with a 5 x 9 collagen meshed graft. This was stapled onto the site appropriately before the area was dressed with Adaptic, 4x4s, Kerlix and Co ban. The patient was taken to recovery room, vital signs stable, vascular supply intact to the remaining d igits. HEMOSTASIS: PAT at 250 mmHg by 41 minutes. MATERIALS: 5 x 9 cm meshed collagen graft. INJECTABLES: 20 cc 0.25% Marcaine plain preoperatively. COMPLICATIONS: None. /[id number]/MODL
== END 2018-09-18 10:50 | disposition home or self-care (01) ==
LOC: FSGY 06:47
PROVIDERS: ATTEND Podiatrist Primary Podiatric Medicine
DX: M86.9 Osteomyelitis, unspecified (principal); M1A.9XX1 Chronic gout, unspecified, with tophus (tophi); E11.621 Type 2 diabetes mellitus with foot ulcer; L97.506 Non-pressure chronic ulcer of other part of unspecified foot with bone involvement without evidence of necrosis; E11.22 Type 2 diabetes mellitus with diabetic chronic kidney disease; I12.9 Hypertensive chronic kidney disease with stage 1 through stage 4 chronic kidney disease, or unspecified chronic kidney disease; N18.3 Chronic kidney disease, stage 3 (moderate); E11.40 Type 2 diabetes mellitus with diabetic neuropathy, unspecified; J44.9 Chronic obstructive pulmonary disease, unspecified; G47.33 Obstructive sleep apnea (adult) (pediatric); I71.4 Abdominal aortic aneurysm, without rupture; Z86.73 Personal history of transient ischemic attack (TIA), and cerebral infarction without residual deficits; Z79.84 Long term (current) use of oral hypoglycemic drugs
CPT/HCPCS: J0690; J2370; J2704; J3010; Q4122